=== PATIENT | female | born 1970 | race Caucasian/White ===

== ENCOUNTER 2016-07-13 09:16 | Emergency (ER) | payer OTHER ==
[~2016-07-13] VITALS: Ht 160 cm; Wt 72.6 kg
[~2016-07-13 09:16] MED LIST: ALAVERT10 M1 PO; ANAPROX DS550 MG PO; ASPIRIN81 M1 PO; BACTRIM DS 8001 TA1 PO; BIAXIN FILMTAB500 MG PO; BIAXIN500 MG PO; BUSPIRONE10 MG PO; CARAFATE1 G1 PO; CHOLESTEROL PILL; CIPROFLOXACIN500 MG PO; CLARITIN10 MG PO; CLEOCIN150 MG PO; CLINDAMYCIN HC300 MG PO; CLINDAMYCIN150 MG PO; CORTISPORIN 1%-10 M1 OT; CYCLOBENZAPRINE10 MG PO; DAYPRO600 M1 PO; ENALAPRIL10 MG PO; FIORINAL 325 MG1 CAP PO; FLEXERIL10 MG PO; GABAPENTIN100 MG PO; GABAPENTIN300 MG PO; GEMCOR600 MG PO; GLYBURIDE5 MG PO; HYDROCODONE BIT1 T11 PO; HYDROXYZINE50 MG PO; IBU800 MG PO; LANTUS100 U/ML SC; LIPITOR10 MG PO; LOVASTATIN40 MG PO; MEDROL DOSEPAK4 MG PO; MELOXICAM7.5 MG PO; METFORMIN PO; METFORMIN1000 MG PO; METFORMIN500 MG PO; METFORMIN850 MG PO; NAPROSYN500 MG PO; NAPROXEN SOD550 MG PO; NOVOLOG 70/30 M10 ML SC; OMEPRAZOLE D/R20 MG PO; PANTOPRAZOLE40 M1 PO; PARAFON FORTE500 MG PO; PERCOCET 325 MG1 TA2 PO; PREDNICOT20 MG PO; PROTONIX40 MG PO; ROBAXIN750 MG PO; SERTRALINE HCL100 MG PO; TIZANIDINE4 MG PO; TRAMADOL HCL50 MG PO; TRAZODONE100 MG PO; ULTRAM50 MG PO; VICODIN 5-3001 EACH PO; VICODIN 5/500 505 MG PO; VICODIN 500 MG-1 TAB PO; ZETIA10 MG PO; ZITHROMAX Z PA250 MG PO; ZOLOFT100 MG PO
[2016-07-13 09:20] VITALS: BP 154/80
[2016-07-13] MEDS ORDERED: LEVAQUIN500 M2 PO (09:23)
[2016-07-13 09:56] LABS: BASO # 0.1 10*3/uL (0.0-0.1); BASO % 0.5 % (0.0-1.0); EOS # 0.2 10*3/uL (0.0-0.4); EOS % 2.1 % (1.0-4.0); HEMATOCRIT 42.8 % (37.0-47.0); IG # 0.1 10*3/uL (0.0-0.1); LYMPH # 3.7 10*3/uL (1.3-4.4); LYMPH % 33.1 % (27.0-41.0); MEAN CELL VOLUME 91.3 fl (81.0-99.0); MEAN PLATELET VOLUME 10.5 fl (9.6-12.3); MONO # 0.5 10*3/uL (0.1-1.0); MONO % 4.4 % (3.0-9.0); NEUT # 6.6 10*3/uL (2.3-7.9); NEUT % 59.4 % (47.0-73.0); PLATELET COUNT AUTOMATED 197 10*3/uL (130-400); RED BLOOD COUNT 4.69 10*6/uL (4.10-5.10); RED CELL DISTRI WIDTH 12.5 % (0-14.5)
[2016-07-13 10:06] LABS: PROTHROMBIN TIME 10.4 SECONDS (9.0-12.4)
[2016-07-13 10:13] LABS: ALBUMIN 3.4 gm/dl (3.1-4.5); ALKALINE PHOSPHATASE 62 U/L (45-117); BILIRUBIN, TOTAL 0.4 mg/dl (0.2-1.0); BUN 12 mg/dl (7-24); C-REACTIVE PROTEIN 0.37 MG/DL (0-0.3); CARBON DIOXIDE 24 mmol/L (21-32); CHLORIDE 104 mmol/L (98-107); EST GLOM FILT AFRICAN AMERICAN > 60 ml/min; GLUCOSE 272 mg/dL (65-99); MAGNESIUM 1.8 mg/dL (1.5-2.1); POTASSIUM 3.7 mmol/L (3.5-5.1); SGOT/AST 23 IU/L (3-35); SGPT/ALT 53 U/L (12-78); SODIUM 136 mmol/L (136-145); TOTAL PROTEIN 7.1 gm/dL (6.4-8.2)
[2016-07-13 10:15] LABS: TROPONIN I < 0.015 ng/ml (<0.045)
== END 2016-07-13 11:27 | disposition home or self-care (01) ==
LOC: ED 09:16
PROVIDERS: Registered Nurse
DX: J20.9 Acute bronchitis, unspecified (principal); F17.200 Nicotine dependence, unspecified, uncomplicated; Z88.0 Allergy status to penicillin; Z88.8 Allergy status to other drugs, medicaments and biological substances; Z79.899 Other long term (current) drug therapy

== ENCOUNTER 2016-08-03 09:39 | Inpatient (IN) | payer OTHER ==
[~2016-08-03] VITALS: Ht 160 cm; Wt 67.8 kg
--- NOTE | ~2016-08-03 | WRIGHTHP ---
[place], [place] PATIENT HISTORY AND PHYSICAL EXAM NAME: MELONY GAMINO [facility] #: [id number] UNIT #: [id number] ROOM: 412 DOCTOR: LEN CUEVAS DO BIRTHDATE: [birth year] DOS: 08/03/2016 PRIMARY CARE PHYSICIAN: Brigitte Meyer. The patient was seen and evaluated with the resident on 08/03/2016. Please see the resident's note for further details. ASSESSMENT: 1. Chest pain, rule out myocardial infarction. 2. Diabetes mellitus type 2. 3. Hypertension. 4. Hyperlipidemia. 5. Tobacco abuse. 6. Chronic obstructive pulmonary disease. 7. Asthma. 8. Gastroesophageal reflux disease. 9. Anxiety. 10. Depression. 11. Negative cardiac stress test in December 2014. PLAN: Continue to monitor cardiac enzymes. Continue other home medications. Probable discharge tomorrow if acute coronary syndrome was ruled out. LEN CUEVAS DO CM:HISPHYS:PATIENT HISTORY AND PHYSICAL EXAMINATION 1446 1518 LEN CUEVAS DO 08/03/16 1518 interface
[~2016-08-03 09:39] MED LIST changes: +LEVAQUIN500 M2 PO
[2016-08-03 09:59] LABS: BASO # 0.1 10*3/uL (0.0-0.1); BASO % 0.5 % (0.0-1.0); EOS # 0.3 10*3/uL (0.0-0.4); EOS % 2.9 % (1.0-4.0); HEMATOCRIT 42.7 % (37.0-47.0); HEMOGLOBIN 15.1 g/dl (12.0-16.0); LYMPH # 3.4 10*3/uL (1.3-4.4); LYMPH % 35.6 % (27.0-41.0); MEAN CELL VOLUME 92.2 fl (81.0-99.0); MEAN CORPUSCULAR HGB 32.6 pg (27.0-31.0); MEAN CORPUSCULAR HGB CONC 35.4 g/dl (33.0-37.0); MEAN PLATELET VOLUME 10.5 fl (9.6-12.3); MONO # 0.5 10*3/uL (0.1-1.0); NEUT # 5.3 10*3/uL (2.3-7.9); NEUT % 55.7 % (47.0-73.0); PLATELET COUNT AUTOMATED 185 10*3/uL (130-400); RED BLOOD COUNT 4.63 10*6/uL (4.10-5.10); RED CELL DISTRI WIDTH 12.4 % (0-14.5); WHITE BLOOD COUNT 9.6 10*3/uL (4.8-10.8)
[2016-08-03 10:00] VITALS: BP 142/84
[2016-08-03 10:07] LABS: INTERNATIONAL NORM RATIO 0.9 (2.0-3.5)
[2016-08-03 10:15] LABS: ALBUMIN 3.6 gm/dl (3.1-4.5); ALKALINE PHOSPHATASE 75 U/L (45-117); BILIRUBIN, TOTAL 0.3 mg/dl (0.2-1.0); BUN 12 mg/dl (7-24); CARBON DIOXIDE 27 mmol/L (21-32); CHLORIDE 103 mmol/L (98-107); CPK 32 U/L (26-192); EST GLOM FILT AFRICAN AMERICAN > 60 ml/min; GLUCOSE 236 mg/dL (65-99); MAGNESIUM 1.9 mg/dL (1.5-2.1); POTASSIUM 3.9 mmol/L (3.5-5.1); SGOT/AST 20 IU/L (3-35); SGPT/ALT 48 U/L (12-78); SODIUM 138 mmol/L (136-145); TOTAL PROTEIN 7.4 gm/dL (6.4-8.2)
[2016-08-03 10:17] LABS: C-REACTIVE PROTEIN < 0.29 MG/DL (0-0.3); CKMB < 0.5 ng/ml (0.5-3.6); TROPONIN I < 0.015 ng/ml (<0.045)
[2016-08-03] MEDS ORDERED: DICLOFENAC SOD50 MG PO (10:50)
[2016-08-03] MEDS ORDERED: GABAPENTIN400 MG PO ×2 (10:50→11:53)
[2016-08-03] MEDS ORDERED: HYDROXYZINE PAM50 MG PO (10:51)
[2016-08-03] MEDS ORDERED: MECLIZINE HCL25 M2 PO (10:51)
[2016-08-03] MEDS ORDERED: ROBAXIN-750750 MG PO (10:52)
[2016-08-03 11:32] VITALS: BP 126/78
[2016-08-03 16:00] VITALS: BP 120/69
[2016-08-03 20:00] VITALS: BP 124/71
[2016-08-04] VITALS: BP 120/71
[2016-08-04 07:02] LABS: BASO # 0.1 10*3/uL (0.0-0.1); BASO % 0.6 % (0.0-1.0); EOS # 0.3 10*3/uL (0.0-0.4); EOS % 3.7 % (1.0-4.0); HEMOGLOBIN 14.3 g/dl (12.0-16.0); LYMPH # 3.7 10*3/uL (1.3-4.4); LYMPH % 40.7 % (27.0-41.0); MEAN CELL VOLUME 92.8 fl (81.0-99.0); MEAN CORPUSCULAR HGB 32.4 pg (27.0-31.0); MEAN CORPUSCULAR HGB CONC 34.9 g/dl (33.0-37.0); MEAN PLATELET VOLUME 10.6 fl (9.6-12.3); MONO # 0.6 10*3/uL (0.1-1.0); MONO % 6.1 % (3.0-9.0); NEUT # 4.4 10*3/uL (2.3-7.9); NEUT % 48.7 % (47.0-73.0); PLATELET COUNT AUTOMATED 182 10*3/uL (130-400); RED BLOOD COUNT 4.42 10*6/uL (4.10-5.10); RED CELL DISTRI WIDTH 12.4 % (0-14.5)
[2016-08-04 07:32] LABS: BUN 18 mg/dl (7-24); CARBON DIOXIDE 28 mmol/L (21-32); CHLORIDE 104 mmol/L (98-107); CHOLESTEROL 310 mg/dL (<200); EST GLOM FILT AFRICAN AMERICAN > 60 ml/min; GLUCOSE 156 mg/dL (65-99); HDL CHOLESTEROL 30 mg/dl (40-60); MAGNESIUM 2.1 mg/dL (1.5-2.1); SODIUM 140 mmol/L (136-145); TRIGLYCERIDES 628 mg/dl (<150)
[2016-08-04 08:00] VITALS: BP 90/52
[2016-08-04 08:16] LABS: HEMOGLOBIN A1c 9.4 % (4.8-5.6)
[2016-08-04 12:00] VITALS: BP 132/69
[2016-08-06 11:40] LABS: VITAMIN D, 25-HYDROXY 11.2 ng/mL (30-100)
[2016-08-06 11:41] LABS: FOLIC ACID 5.16 ng/mL (>5.38)
== END 2016-08-04 13:16 | disposition home or self-care (01) | DRG 392 ==
LOC: ED 09:39 → EDHOLD 10:34 → 4E 10:50
PROVIDERS: Internal Medicine; Internal Medicine Hospice and Palliative Medicine
DX: K21.9 Gastro-esophageal reflux disease without esophagitis (principal); E11.65 Type 2 diabetes mellitus with hyperglycemia; I10 Essential (primary) hypertension; J44.9 Chronic obstructive pulmonary disease, unspecified; F32.9 Major depressive disorder, single episode, unspecified; M54.5 Low back pain; E78.5 Hyperlipidemia, unspecified; F17.200 Nicotine dependence, unspecified, uncomplicated; G89.29 Other chronic pain; F41.1 Generalized anxiety disorder; Z79.4 Long term (current) use of insulin; Z79.899 Other long term (current) drug therapy; Z79.84 Long term (current) use of oral hypoglycemic drugs; Z71.6 Tobacco abuse counseling; Z88.0 Allergy status to penicillin; Z88.8 Allergy status to other drugs, medicaments and biological substances; Z91.048 Other nonmedicinal substance allergy status; Z82.49 Family history of ischemic heart disease and other diseases of the circulatory system; Z83.3 Family history of diabetes mellitus; Z82.3 Family history of stroke; Z80.8 Family history of malignant neoplasm of other organs or systems

== ENCOUNTER → 2016-09-11 | Outpatient (CLI) | payer OTHER ==
[~2016-09-11] MED LIST changes: +DICLOFENAC SOD50 MG PO; +GABAPENTIN400 MG PO; +HYDROXYZINE PAM50 MG PO; +MECLIZINE HCL25 M2 PO; +ROBAXIN-750750 MG PO
== END | disposition home or self-care (01) ==
LOC: CARD 02:42
DX: R07.2 Precordial pain (principal); Z72.0 Tobacco use

== ENCOUNTER 2017-03-04 15:09 | Inpatient (IN) | payer OTHER ==
[~2017-03-04] VITALS: Ht 160 cm; Wt 68.3 kg
--- NOTE | ~2017-03-04 | ST ---
[place], [place] EXERCISE STRESS TEST REPORT NAME: MELONY GAMINO UNIT #: [id number] ROOM: 402 DOCTOR: HARDY MERA MD BIRTHDATE: [birth year] DOS: 03/05/2017 Lexiscan portion of the Lexiscan Cardiolite, 0.4 mg Lexiscan, duration of 1 minute. With Lexiscan, no new EKG changes. No chest pain. Blood pressure and heart rate response was normal. Nuclear images will be reported separately. HARDY MERA MD CM:STRESS:EXERCISE STRESS TEST REPORT [id number] HARDY MERA MD
--- NOTE | ~2017-03-04 | CON ---
[place], [place] REPORT OF CONSULTATION NAME: MELONY GAMINO UNIT #: [id number] ROOM: 402 DOCTOR: HARDY MERA MD BIRTHDATE: [birth year] DOS: 03/05/2017 REASON FOR CONSULTATION: Chest discomfort. HISTORY OF PRESENT ILLNESS: The patient is a 46-year-old female well known to [place], admitted with left-sided precordial chest discomfort. She had a heart catheterization done by [place] and had minimal disease about 3 years ago. The patient states that the pain is about 6/10. The patient has a family history of coronary artery, tobacco abuse, diabetes mellitus, hypertension, and hyperlipidemia. No nausea, no vomiting. The patient does have shortness of breath. PAST MEDICAL HISTORY: Hypertension, hyperlipidemia, chronic back pain, generalized anxiety, and diabetes mellitus. PAST SURGICAL HISTORY: Back surgery, cholecystectomy, and appendectomy. SOCIAL HISTORY: Denies any alcohol or drug abuse. Continues to smoke 1-2 packs per day of cigarettes. FAMILY HISTORY: Positive for coronary artery disease. ALLERGIES: PENICILLIN. HOME MEDICATIONS: Insulin, glyburide, meclizine, metformin, sertraline, trazodone. REVIEW OF SYSTEMS: CONSTITUTIONAL: No fever, no chills. HEENT: No visual disturbances or hearing problems. CARDIOVASCULAR: As per HPI. RESPIRATORY: Does have shortness of breath. GASTROINTESTINAL: No nausea, no vomiting. GENITOURINARY: No dysuria. NEUROLOGICAL: Stable. PHYSICAL EXAMINATION: VITAL SIGNS: Blood pressure is 130/70. HEENT: Unremarkable. NECK: Supple, no JVD. LUNGS: Diminished breath sounds. HEART: Sounds are regular. ABDOMEN: Soft, nontender. NEUROLOGICAL: Stable. LABORATORY DATA: Electrolytes are normal. Creatinine is normal. Hemoglobin 15.7, hematocrit within normal limits. Chest x-ray is normal. EKG sinus with nonspecific ST-T changes. IMPRESSION: The patient with diabetes, hypertension, hyperlipidemia, tobacco [place], [place] REPORT OF CONSULTATION NAME: MELONY GAMINO UNIT #: [id number] ROOM: 402 DOCTOR: GABRIELLA MERA MDHISH BIRTHDATE: [birth year] abuse with chest pain. The patient has significant risk factors of coronary artery disease. RECOMMENDATIONS: Proceed with a Lexiscan Cardiolite stress test. Continue with the other medications and I will followup. HARDY MERA MD CM:CONSTR:REPORT OF CONSULTATION 0720 03/06/17 0509 interface
[2017-03-04 15:29] VITALS: BP 149/85
[2017-03-04 15:34] LABS: BASO # 0.1 10*3/uL (0.0-0.1); BASO % 0.7 % (0.0-1.0); EOS # 0.6 10*3/uL (0.0-0.4); EOS % 4.7 % (1.0-4.0); HEMATOCRIT 43.8 % (37.0-47.0); HEMOGLOBIN 15.7 g/dl (12.0-16.0); LYMPH % 34.3 % (27.0-41.0); MEAN CELL VOLUME 89.8 fl (81.0-99.0); MEAN CORPUSCULAR HGB 32.2 pg (27.0-31.0); MEAN CORPUSCULAR HGB CONC 35.8 g/dl (33.0-37.0); MEAN PLATELET VOLUME 11.3 fl (9.6-12.3); MONO # 0.7 10*3/uL (0.1-1.0); MONO % 5.8 % (3.0-9.0); NEUT # 6.3 10*3/uL (2.3-7.9); NEUT % 54.2 % (47.0-73.0); PLATELET COUNT AUTOMATED 181 10*3/uL (130-400); RED BLOOD COUNT 4.88 10*6/uL (4.10-5.10); WHITE BLOOD COUNT 11.6 10*3/uL (4.8-10.8)
[2017-03-04 15:42] LABS: ACT PARTIAL THROMBO TIME 25.5 SECONDS (20.8-31.5)
[2017-03-04 15:51] LABS: ALBUMIN 3.6 gm/dl (3.1-4.5); ALKALINE PHOSPHATASE 81 U/L (45-117); BUN 9 mg/dl (7-24); CHLORIDE 100 mmol/L (98-107); CREATININE 0.79 mg/dL (0.55-1.02); POTASSIUM 3.5 mmol/L (3.5-5.1); SGOT/AST 16 IU/L (3-35); SGPT/ALT 49 U/L (12-78); SODIUM 135 mmol/L (136-145); TOTAL PROTEIN 7.6 gm/dL (6.4-8.2)
[2017-03-04 15:53] LABS: TROPONIN I < 0.015 ng/ml (<0.045)
[2017-03-04 16:56] VITALS: BP 134/78
[2017-03-04 17:31] VITALS: BP 112/74
--- NOTE | 2017-03-04 18:15 | NUR ---
A 46, admitted to , under the services of LEN Costello DO with a diagnosis of CHEST PAIN. Chief complaint is CHEST PAIN. Patient arrived via ambulatory from ER. Monitor applied. Initial assessment completed. Vital signs taken and recorded. LEN COSTELLO DO notified of admission to the unit. Orders received. See assessment for past medical history, medications and allergies. Patient and/or family oriented to unit. [address] visitation policy reviewed. Clothing/patient valuable form completed. ANDRAE MARQUIS
[2017-03-04] MEDS ORDERED: LEXAPRO20 MG PO (18:29)
[2017-03-04] MEDS ORDERED: ROPINIROLE HYDRO2 M2 PO (18:30)
[2017-03-04] MEDS ORDERED: VENTOLIN 02.5 MG/3 M INH (18:31)
[2017-03-04] MEDS ORDERED: LORCET 5-325 M1 EACH PO (18:32)
[2017-03-04] MEDS ORDERED: LASIX20 MG PO (18:33)
[2017-03-04] MEDS ORDERED: HUMALOG KW200 UNIT/1 SQ (18:34)
[2017-03-04] MEDS ORDERED: GLUCOTROL5 MG PO (18:34)
[2017-03-04] MEDS ORDERED: ZYRTEC10 M3 PO (18:35)
[2017-03-04] MEDS ORDERED: ATORVASTATIN CA40 M1 PO (18:35)
[2017-03-04] MEDS ORDERED: JANUVIA50 MG PO (18:37)
[2017-03-04] MEDS ORDERED: METFORMIN1000 MG PO (18:44)
[2017-03-04] MEDS ORDERED: METFORMIN500 MG PO (18:45)
[2017-03-04 20:00] VITALS: BP 123/71
--- NOTE | 2017-03-04 22:20 | NUR ---
NICODERM PATCH PLACED ON PT'S RIGHT SHOULDER.
--- NOTE | 2017-03-04 23:00 | NUR ---
PT RESTING QUIETLY IN BED WITH EYES CLOSED. NO S/S OF PAIN NOTED. PRN NORCO EFFECTIVE FOR PAIN RELIEF.
[2017-03-05] VITALS: BP 143/73
--- NOTE | 2017-03-05 03:51 | NUR ---
24 HR chart check completed.
[2017-03-05 06:02] LABS: HEMATOCRIT 45.5 % (37.0-47.0); HEMOGLOBIN 15.9 g/dl (12.0-16.0); MEAN CELL VOLUME 91.7 fl (81.0-99.0); MEAN CORPUSCULAR HGB 32.1 pg (27.0-31.0); MEAN CORPUSCULAR HGB CONC 34.9 g/dl (33.0-37.0); MEAN PLATELET VOLUME 11.6 fl (9.6-12.3); PLATELET COUNT AUTOMATED 199 10*3/uL (130-400); RED BLOOD COUNT 4.96 10*6/uL (4.10-5.10); RED CELL DISTRI WIDTH 12.1 % (0-14.5); WHITE BLOOD COUNT 12.1 10*3/uL (4.8-10.8)
[2017-03-05 06:11] LABS: CHLORIDE 100 mmol/L (98-107); POTASSIUM 3.3 mmol/L (3.5-5.1); SODIUM 137 mmol/L (136-145)
[2017-03-05 06:23] LABS: BUN 12 mg/dl (7-24); CHOLESTEROL 189 mg/dL (<200); CREATININE 0.63 mg/dL (0.55-1.02); HDL CHOLESTEROL 31 mg/dl (40-60); LDL CHOLESTEROL 97 mg/dL (9-159); THYROID STIM HORMONE (HS) 0.865 uIU/ml (0.358-4.75); TRIGLYCERIDES 307 mg/dl (<150); VLDL CHOLESTEROL 61 mg/dL (6-40)
--- NOTE | 2017-03-05 06:26 | NUR ---
PT LEAVING FLOOR VIA W/C W/RELOCATION SERVICES SPECIALIST TO [employer] FOR STRESS TEST AT THIS TIME.
[2017-03-05 06:50] LABS: TOTAL CELLS COUNTED 100 #CELLS
[2017-03-05 06:51] LABS: PLATELET SUFFICIENCY NORMAL (NORMAL)
--- NOTE | 2017-03-05 07:15 | NUR ---
INFORMED CONSENT OBTAINED FOR LEXISCAN NUCLEAR STRESS TEST WITH DR. MERA. STRESS TEST INITIALLY ORDERED BUT CHANGED TO LEXISCAN ORDERED BY DR. MERA. RESTING EKG NSR WITH A RESTING HR OF 73 WITH BP OF 102/72. LUNGS DIMINISHED BS WITH SPO2 OF 97% ON ROOM AIR. PT COMPLETED A 1:00 LEXISCAN PROTOCOL RECEIVING LEXISCAN 0.4 MG IV OVER 10 SECONDS. HAD NO CHEST PAIN OR ANY EKG CHANGES. DID HAVE C/O SHORTNESS OF BREATH THAT WAS RELIEVED IN RECOVERY. HAD A PEAK BP OF 100/58 WITH HR OF 91. LAST RECOVERY HR OF 92 WITH BP OF 98/60. AWAITING SCANNING IN STABLE CONDITION.
[2017-03-05 08:00] VITALS: BP 106/59
--- NOTE | 2017-03-05 09:00 | NUR ---
Machine Stripper Cutter in to talk to patient. Patient states lives at home with . There are few steps in the home. Physician: jada schuler [facility] Home health services: none Patient's level of ADLs: INDEPENDENT Patient has working utilities: all working DME: none Follow-up physician's appointment after d/c: will be made by hospitalist nurse director upon discharage Does patient want to access PORTAL?: no Discharge plan discussed with patient, patient lives at home with her , she is independent in adls and ambulation, patient states she will be going back home and denies any home needs. JOE SMITH
--- NOTE | 2017-03-05 09:01 | NUR ---
ONE TIME DOSE OF K-DUR 40 MEQ GIVEN FOR POTASSIUM OF 3.3
[2017-03-05 12:00] VITALS: BP 104/71
--- NOTE | 2017-03-05 15:13 | NUR ---
PATIENT LEFT AMA. HEP LOCK DISCONTINUED, GEOSPATIAL SYSTEMS INTEGRATOR REMOVED. NOTIFIED SHIFT DIRECTOR AND PHYSICIAN. PATIENT WAS CONCERNED ABOUT CATS BEING AT HOME BY THEMSELVES.
== END 2017-03-05 15:13 | disposition left against medical advice (07) | DRG 206 ==
LOC: ED 15:09 → EDHOLD 16:28 → 4E 16:28
PROVIDERS: Emergency Medicine; Internal Medicine; ADMIT Emergency Medicine
PROC: 4A02XM4 Measurement of Cardiac Total Activity, External Approach (ICD-10-PCS; principal; 2017-03-05)
PROC: 3E073KZ Introduction of Other Diagnostic Substance into Coronary Artery, Percutaneous Approach (ICD-10-PCS; 2017-03-05)
DX: M94.0 Chondrocostal junction syndrome [Tietze] (principal); I11.0 Hypertensive heart disease with heart failure; E11.65 Type 2 diabetes mellitus with hyperglycemia; I50.9 Heart failure, unspecified; R09.1 Pleurisy; K21.9 Gastro-esophageal reflux disease without esophagitis; D72.829 Elevated white blood cell count, unspecified; Z53.21 Procedure and treatment not carried out due to patient leaving prior to being seen by health care provider; F32.9 Major depressive disorder, single episode, unspecified; F41.1 Generalized anxiety disorder; F17.210 Nicotine dependence, cigarettes, uncomplicated; E66.9 Obesity, unspecified; M54.9 Dorsalgia, unspecified; G89.29 Other chronic pain; E87.6 Hypokalemia; E55.9 Vitamin D deficiency, unspecified; E53.8 Deficiency of other specified B group vitamins; E78.1 Pure hyperglyceridemia; Z88.0 Allergy status to penicillin; Z88.8 Allergy status to other drugs, medicaments and biological substances; Z91.048 Other nonmedicinal substance allergy status; Z90.49 Acquired absence of other specified parts of digestive tract; Z82.3 Family history of stroke; Z79.4 Long term (current) use of insulin; Z71.6 Tobacco abuse counseling; Z80.0 Family history of malignant neoplasm of digestive organs; Z79.84 Long term (current) use of oral hypoglycemic drugs; Z79.899 Other long term (current) drug therapy; Z82.49 Family history of ischemic heart disease and other diseases of the circulatory system; Z68.31 Body mass index [BMI] 31.0-31.9, adult

== ENCOUNTER 2017-06-19 16:37 | Emergency (ER) | payer OTHER ==
[~2017-06-19] VITALS: Wt 68.9 kg
[~2017-06-19 16:37] MED LIST changes: +ATORVASTATIN CA40 M1 PO; +GLUCOTROL5 MG PO; +HUMALOG KW200 UNIT/1 SQ; +JANUVIA50 MG PO; +LASIX20 MG PO; +LEXAPRO20 MG PO; +LORCET 5-325 M1 EACH PO; +ROPINIROLE HYDRO2 M2 PO; +VENTOLIN 02.5 MG/3 M INH; +ZYRTEC10 M3 PO
[2017-06-19 16:55] VITALS: BP 145/88
== END 2017-06-19 20:08 | disposition home or self-care (01) ==
LOC: ED 16:37
DX: K06.8 Other specified disorders of gingiva and edentulous alveolar ridge (principal); F17.200 Nicotine dependence, unspecified, uncomplicated; Z98.890 Other specified postprocedural states; Z90.49 Acquired absence of other specified parts of digestive tract; Z79.899 Other long term (current) drug therapy; Z79.4 Long term (current) use of insulin; Z88.0 Allergy status to penicillin; Z88.6 Allergy status to analgesic agent

== ENCOUNTER → 2017-07-24 | Outpatient (CLI) | payer OTHER | END | disposition home or self-care (01) | LOC: US 12:50 | DX: I65.23 Occlusion and stenosis of bilateral carotid arteries (principal); R42 Dizziness and giddiness ==

== ENCOUNTER 2017-08-18 20:05 | Emergency (ER) | payer OTHER ==
[~2017-08-18] VITALS: Ht 160 cm; Wt 65.8 kg
[2017-08-18 20:08] VITALS: BP 124/75
[2017-08-18 20:37] LABS: BASO # 0.1 10*3/uL (0.0-0.1); BASO % 0.7 % (0.0-1.0); EOS # 0.2 10*3/uL (0.0-0.4); EOS % 2.8 % (1.0-4.0); HEMATOCRIT 42.4 % (37.0-47.0); HEMOGLOBIN 14.4 g/dl (12.0-16.0); LYMPH # 3.5 10*3/uL (1.3-4.4); LYMPH % 40.7 % (27.0-41.0); MEAN CORPUSCULAR HGB 29.9 pg (27.0-31.0); MONO # 0.5 10*3/uL (0.1-1.0); MONO % 5.3 % (3.0-9.0); NEUT # 4.4 10*3/uL (2.3-7.9); NEUT % 50.3 % (47.0-73.0); PLATELET COUNT AUTOMATED 162 10*3/uL (130-400); RED BLOOD COUNT 4.82 10*6/uL (4.10-5.10); RED CELL DISTRI WIDTH 13.1 % (0-14.5); WHITE BLOOD COUNT 8.7 10*3/uL (4.8-10.8)
[2017-08-18 20:42] VITALS: BP 133/78
[2017-08-18 20:47] LABS: ACT PARTIAL THROMBO TIME 24.9 SECONDS (20.8-31.5); INTERNATIONAL NORM RATIO 0.9 (2.0-3.5)
[2017-08-18 20:54] LABS: ALBUMIN 3.9 gm/dl (3.1-4.5); ALKALINE PHOSPHATASE 54 U/L (45-117); BUN 15 mg/dl (7-24); CHLORIDE 103 mmol/L (98-107); CREATININE 0.64 mg/dL (0.55-1.02); POTASSIUM 3.8 mmol/L (3.5-5.1); SGOT/AST 28 IU/L (3-35); SGPT/ALT 50 U/L (12-78); SODIUM 138 mmol/L (136-145); TOTAL PROTEIN 7.1 gm/dL (6.4-8.2)
[2017-08-18 20:56] LABS: TROPONIN I < 0.015 ng/ml (<0.045)
== END 2017-08-18 22:02 ==
LOC: ED 20:05 → EDHOLD 21:41 → ED 22:02
PROVIDERS: Student in an Organized Health Care Education/Training Program
DX: R07.9 Chest pain, unspecified (principal); R42 Dizziness and giddiness; I10 Essential (primary) hypertension; E11.9 Type 2 diabetes mellitus without complications; E78.5 Hyperlipidemia, unspecified; E66.9 Obesity, unspecified; F17.200 Nicotine dependence, unspecified, uncomplicated; Z88.0 Allergy status to penicillin; Z88.8 Allergy status to other drugs, medicaments and biological substances; Z68.39 Body mass index [BMI] 39.0-39.9, adult

== ENCOUNTER 2017-09-07 14:18 | Inpatient (IN) | payer OTHER ==
[~2017-09-07] VITALS: Ht 160 cm; Wt 63.7 kg
--- NOTE | ~2017-09-07 | WRIGHTHP ---
[place], [place] PATIENT HISTORY AND PHYSICAL EXAM NAME: MELONY GAMINO UNIT #: [id number] ROOM: 402 DOCTOR: ASIA JOSEPH DO BIRTHDATE: [birth year] DOS: 09/07/2017 SUBJECTIVE: The patient was admitted from the ED, however, she left the ED AMA and she was never seen by the medical team. ASIA JOSEPH DO CM:HISPHYS:PATIENT HISTORY AND PHYSICAL EXAMINATION 1502 1615 ASIA JOSEPH DO 10/04/17 1614 interface
[~2017-09-07 14:18] MED LIST changes: +GLUCOPHAGE500 M1 PO; +LANTUS SOL100 UNIT/1 SQ; -LANTUS100 U/ML SC
[2017-09-07 14:25] VITALS: BP 108/72
[2017-09-07 14:40] LABS: BASO # 0.1 10*3/uL (0.0-0.1); BASO % 0.6 % (0.0-1.0); EOS # 0.2 10*3/uL (0.0-0.4); HEMATOCRIT 35.4 % (37.0-47.0); HEMOGLOBIN 12.3 g/dl (12.0-16.0); LYMPH # 3.4 10*3/uL (1.3-4.4); LYMPH % 39.4 % (27.0-41.0); MEAN CELL VOLUME 86.3 fl (81.0-99.0); MEAN CORPUSCULAR HGB CONC 34.7 g/dl (33.0-37.0); MEAN PLATELET VOLUME 9.9 fl (9.6-12.3); MONO # 0.4 10*3/uL (0.1-1.0); MONO % 4.7 % (3.0-9.0); NEUT # 4.5 10*3/uL (2.3-7.9); NEUT % 53.1 % (47.0-73.0); PLATELET COUNT AUTOMATED 158 10*3/uL (130-400); RED CELL DISTRI WIDTH 12.6 % (0-14.5); WHITE BLOOD COUNT 8.5 10*3/uL (4.8-10.8)
[2017-09-07 14:48] LABS: ACT PARTIAL THROMBO TIME 24.8 SECONDS (20.8-31.5); INTERNATIONAL NORM RATIO 1.1 (2.0-3.5)
[2017-09-07 14:57] LABS: ALBUMIN 3.4 gm/dl (3.1-4.5); ALKALINE PHOSPHATASE 44 U/L (45-117); BUN 13 mg/dl (7-24); CHLORIDE 107 mmol/L (98-107); POTASSIUM 3.4 mmol/L (3.5-5.1); SGOT/AST 15 IU/L (3-35); SGPT/ALT 26 U/L (12-78); SODIUM 141 mmol/L (136-145); TOTAL PROTEIN 6.3 gm/dL (6.4-8.2)
[2017-09-07 14:59] LABS: TROPONIN I < 0.015 ng/ml (<0.045)
[2017-09-07 15:07] VITALS: BP 101/78
[2017-09-07 16:00] VITALS: BP 121/68
[2017-09-07] MEDS ORDERED: REQUIP3 M1 PO (16:19)
[2017-09-07] MEDS ORDERED: TRAZODONE HCL300 MG PO (16:19)
[2017-09-07] MEDS ORDERED: ASPIRIN CHEWABL81 MG PO (16:25)
[2017-09-07] MEDS ORDERED: TYLENOL WITH C1 EACH PO (16:25)
[2017-09-07] MEDS ORDERED: BUPROPION HCL150 M1 PO (16:26)
[2017-09-07 20:00] VITALS: BP 101/55
== END 2017-09-08 01:00 | disposition left against medical advice (07) | DRG 313 ==
LOC: ED 14:18 → EDHOLD 15:21 → 4E 15:39
PROVIDERS: Emergency Medicine
DX: R07.9 Chest pain, unspecified (principal); E11.9 Type 2 diabetes mellitus without complications; E66.9 Obesity, unspecified; E78.5 Hyperlipidemia, unspecified; F32.9 Major depressive disorder, single episode, unspecified; G89.29 Other chronic pain; M54.9 Dorsalgia, unspecified; I10 Essential (primary) hypertension; Z53.21 Procedure and treatment not carried out due to patient leaving prior to being seen by health care provider; F41.1 Generalized anxiety disorder; Z90.49 Acquired absence of other specified parts of digestive tract; Z82.49 Family history of ischemic heart disease and other diseases of the circulatory system; Z83.3 Family history of diabetes mellitus; Z79.4 Long term (current) use of insulin; Z88.0 Allergy status to penicillin; Z88.8 Allergy status to other drugs, medicaments and biological substances; Z88.9 Allergy status to unspecified drugs, medicaments and biological substances; Z79.84 Long term (current) use of oral hypoglycemic drugs; Z79.899 Other long term (current) drug therapy; Z82.3 Family history of stroke; Z80.0 Family history of malignant neoplasm of digestive organs; Z68.24 Body mass index [BMI] 24.0-24.9, adult

== ENCOUNTER 2017-10-14 18:11 | Inpatient (IN) | payer OTHER ==
[~2017-10-14] VITALS: Ht 160 cm; Wt 63.6 kg
--- NOTE | ~2017-10-14 | CON ---
[place], [place] REPORT OF CONSULTATION NAME: MELONY GAMINO UNIT #: [id number] ROOM: 506 DOCTOR: HARDY MERA MD BIRTHDATE: [birth year] DOS: 10/15/2017 HISTORY OF PRESENT ILLNESS: The patient is a 47-year-old female with a heavy tobacco abuse, admitted with chest discomfort. No acute EKG changes, suggestion of myocardial injury or infarction. The patient had a stress test a year ago, which was normal. The patient continues to smoke. Denies any nausea or vomiting. No GI or issues. She is neurologically stable. PAST MEDICAL HISTORY: Significant for hypertension, depression, hyperlipidemia, spinal stenosis, tobacco abuse, and diabetes mellitus. PAST SURGICAL HISTORY: Back history and cholecystectomy. HOME MEDICATIONS: Aspirin, atorvastatin, metformin, insulin, methocarbamol, and trazodone. ALLERGIES: PENICILLIN. SOCIAL HISTORY: She continues to smoke. She denies any alcohol abuse. FAMILY HISTORY: Positive for coronary artery disease. REVIEW OF SYSTEMS: CONSTITUTIONAL: No fever, no chills. HEENT: No visual disturbances or hearing problems. CARDIOVASCULAR SYSTEM: As per HPI. GASTROINTESTINAL: No nausea, no vomiting. GENITOURINARY: No dysuria. NEUROLOGICAL: No syncope. PHYSICAL EXAMINATION: VITAL SIGNS: Blood pressure is 113/70. She is in sinus rhythm. HEENT: Unremarkable. NECK: Supple. No JVD. LUNGS: Clear. HEART: Sounds are regular. ABDOMEN: Soft, nontender. NEUROLOGIC: Stable. DIAGNOSTIC DATA: EKG, sinus with nonspecific ST-T changes. LABORATORY DATA: Reviewed by me. Electrolytes are all normal. CPK-MB, troponins are all negative. Hemoglobin and hematocrit within normal limits. IMPRESSION: The patient with heavy tobacco abuse, hypertension, hyperlipidemia, and diabetes mellitus with chest pain. Serial enzymes have been negative. RECOMMENDATIONS: Proceed with a Lexiscan Cardiolite stress test. Continue with other medications and we will follow up. [place], [place] REPORT OF CONSULTATION NAME: MELONY GAMINO UNIT #: [id number] ROOM: 506 DOCTOR: HARDY MERA MD BIRTHDATE: [birth year] HARDY MERA MD CM:CONSTR:REPORT OF CONSULTATION 3 10/15/17717 interface
--- NOTE | ~2017-10-14 | ST ---
[place], [place] EXERCISE STRESS TEST REPORT NAME: MELONY GAMINO UNIT #: [id number] ROOM: 506 DOCTOR: HARDY MERA MD BIRTHDATE: [birth year] DOS: 10/15/2017 LEXISCAN PORTION OF THE LEXISCAN CARDIOLITE Baseline cardiogram, normal sinus rhythm with poor R-wave progression in the anterior leads, 0.4 mg of Lexiscan, duration of 10 seconds. With Lexiscan, no new EKG changes. No chest pain. Blood pressure and heart rate responses normal. Nuclear images will be reported separately. HARDY MERA MD CM:STRESS:EXERCISE STRESS TEST REPORT 1 0708 HARDY MERA MD
[~2017-10-14 18:11] MED LIST changes: +ASPIRIN CHEWABL81 MG PO; +BUPROPION HCL150 M1 PO; +REQUIP3 M1 PO; +TRAZODONE HCL300 MG PO; +TYLENOL WITH C1 EACH PO
[2017-10-14 18:32] VITALS: BP 123/73
[2017-10-14 18:34] LABS: BASO # 0.1 10*3/uL (0.0-0.1); BASO % 0.7 % (0.0-1.0); EOS # 0.4 10*3/uL (0.0-0.4); EOS % 4.7 % (1.0-4.0); HEMATOCRIT 41.4 % (37.0-47.0); HEMOGLOBIN 14.1 g/dl (12.0-16.0); LYMPH # 3.4 10*3/uL (1.3-4.4); LYMPH % 40.9 % (27.0-41.0); MEAN CELL VOLUME 87.3 fl (81.0-99.0); MEAN CORPUSCULAR HGB 29.7 pg (27.0-31.0); MEAN CORPUSCULAR HGB CONC 34.1 g/dl (33.0-37.0); MEAN PLATELET VOLUME 9.7 fl (9.6-12.3); MONO # 0.4 10*3/uL (0.1-1.0); MONO % 4.7 % (3.0-9.0); NEUT % 48.8 % (47.0-73.0); PLATELET COUNT AUTOMATED 185 10*3/uL (130-400); RED BLOOD COUNT 4.74 10*6/uL (4.10-5.10); RED CELL DISTRI WIDTH 12.8 % (0-14.5); WHITE BLOOD COUNT 8.2 10*3/uL (4.8-10.8)
[2017-10-14 18:47] LABS: ACT PARTIAL THROMBO TIME 25.7 SECONDS (20.8-31.5); INTERNATIONAL NORM RATIO 0.9 (2.0-3.5)
[2017-10-14 18:50] LABS: ALBUMIN 3.7 gm/dl (3.1-4.5); ALKALINE PHOSPHATASE 59 U/L (45-117); BUN 14 mg/dl (7-24); CHLORIDE 105 mmol/L (98-107); CREATININE 0.72 mg/dL (0.55-1.02); POTASSIUM 3.5 mmol/L (3.5-5.1); SGOT/AST 11 IU/L (3-35); SGPT/ALT 22 U/L (12-78); SODIUM 142 mmol/L (136-145); TOTAL PROTEIN 7.4 gm/dL (6.4-8.2)
[2017-10-14 18:52] LABS: TROPONIN I < 0.015 ng/ml (<0.045)
[2017-10-14 19:28] VITALS: BP 115/76
[2017-10-14 20:27] VITALS: BP 113/7; BP 113/70
[2017-10-15] VITALS: BP 123/61
== END 2017-10-15 12:05 | disposition home or self-care (01) | DRG 206 ==
LOC: ED 18:11 → EDHOLD 19:22 → 5E 19:22
PROVIDERS: Emergency Medicine
PROC: 4A02XM4 Measurement of Cardiac Total Activity, External Approach (ICD-10-PCS; principal; 2017-10-15)
PROC: 3E073KZ Introduction of Other Diagnostic Substance into Coronary Artery, Percutaneous Approach (ICD-10-PCS; 2017-10-15)
DX: M94.0 Chondrocostal junction syndrome [Tietze] (principal); E44.0 Moderate protein-calorie malnutrition; E11.65 Type 2 diabetes mellitus with hyperglycemia; M48.061 Spinal stenosis, lumbar region without neurogenic claudication; F32.9 Major depressive disorder, single episode, unspecified; F41.1 Generalized anxiety disorder; Z71.6 Tobacco abuse counseling; E55.9 Vitamin D deficiency, unspecified; E53.8 Deficiency of other specified B group vitamins; E78.1 Pure hyperglyceridemia; I10 Essential (primary) hypertension; E78.5 Hyperlipidemia, unspecified; F17.210 Nicotine dependence, cigarettes, uncomplicated; E66.9 Obesity, unspecified; Z90.49 Acquired absence of other specified parts of digestive tract; Z98.891 History of uterine scar from previous surgery; Z79.82 Long term (current) use of aspirin; Z79.4 Long term (current) use of insulin; Z68.24 Body mass index [BMI] 24.0-24.9, adult; Z79.84 Long term (current) use of oral hypoglycemic drugs; Z79.899 Other long term (current) drug therapy; Z88.0 Allergy status to penicillin; Z88.8 Allergy status to other drugs, medicaments and biological substances; Z91.048 Other nonmedicinal substance allergy status; Z82.3 Family history of stroke; Z82.49 Family history of ischemic heart disease and other diseases of the circulatory system; Z83.3 Family history of diabetes mellitus; Z80.8 Family history of malignant neoplasm of other organs or systems

== ENCOUNTER 2017-10-19 19:55 | Emergency (ER) | payer OTHER ==
[~2017-10-19] VITALS: Ht 160 cm; Wt 63.5 kg
--- NOTE | ~2017-10-19 | EKG ---
[place], [place] ELECTROCARDIOGRAM REPORT NAME: MELONY GAMINO UNIT #: [id number] ROOM: DOCTOR: EPIPHANY DRAFT REPORT BIRTHDATE: [birth year] [facility] Test Date: 2017-10-19 Test Time: 20:20:02 Pat Name: MELONY GAMINO Department: ER Room: 2 Gender: F Supervisor Delivery Department: 52 : 1970 Requested By: SAIMA ZAVALA Order Number: [id number] Reading MD: Richie Aguirre MD Measurements Intervals [place] Rate: 93 P: 40 DC: 165 QRS: 39 QRSD: 88 T: 83 QT: 369 QTc: 459 Interpretive Statements Sinus rhythm Probable left atrial enlargement poor R wave progression anterior leads Electronically Signed On 10-29-2017 4:39:12 PDT by Richie Aguirre MD CM:EKGRPT:ELECTROCARDIOGRAM REPORT 19 0439 SAIMA HECK DRAFT REPORT SAIMA ZAVALA DO
[2017-10-19 20:40] LABS: BASO # 0.1 10*3/uL (0.0-0.1); BASO % 0.7 % (0.0-1.0); EOS # 0.3 10*3/uL (0.0-0.4); EOS % 3.7 % (1.0-4.0); HEMATOCRIT 40.7 % (37.0-47.0); HEMOGLOBIN 13.6 g/dl (12.0-16.0); LYMPH # 3.3 10*3/uL (1.3-4.4); LYMPH % 45.3 % (27.0-41.0); MEAN CELL VOLUME 87.2 fl (81.0-99.0); MEAN CORPUSCULAR HGB 29.1 pg (27.0-31.0); MEAN CORPUSCULAR HGB CONC 33.4 g/dl (33.0-37.0); MEAN PLATELET VOLUME 9.5 fl (9.6-12.3); MONO # 0.4 10*3/uL (0.1-1.0); MONO % 5.6 % (3.0-9.0); NEUT # 3.2 10*3/uL (2.3-7.9); NEUT % 44.4 % (47.0-73.0); PLATELET COUNT AUTOMATED 175 10*3/uL (130-400); RED BLOOD COUNT 4.67 10*6/uL (4.10-5.10); RED CELL DISTRI WIDTH 12.9 % (0-14.5); WHITE BLOOD COUNT 7.3 10*3/uL (4.8-10.8)
[2017-10-19 20:56] LABS: ALBUMIN 3.8 gm/dl (3.1-4.5); ALKALINE PHOSPHATASE 58 U/L (45-117); BUN 15 mg/dl (7-24); CHLORIDE 102 mmol/L (98-107); CREATININE 0.78 mg/dL (0.55-1.02); LIPASE 49 U/L (73-393); POTASSIUM 3.9 mmol/L (3.5-5.1); SGOT/AST 11 IU/L (3-35); SGPT/ALT 20 U/L (12-78); SODIUM 138 mmol/L (136-145); TOTAL PROTEIN 7.3 gm/dL (6.4-8.2)
[2017-10-19 21:52] LABS: BILIRUBIN NEGATIVE (NEGATIVE); BLOOD TRACE-LYSED (NEGATIVE); CLARITY CLEAR (CLEAR); COLOR YELLOW (YELLOW); GLUCOSE NEGATIVE (NEGATIVE); KETONE NEGATIVE (NEGATIVE); LEUKO ESTERASE 2+ (NEGATIVE); NITRITE NEGATIVE (NEGATIVE); PH 6.5 (5.0-9.0); UROBILINOGEN 0.2 E.U./dl (0.2-1.0)
[2017-10-19 21:55] VITALS: BP 142/81
[2017-10-19 21:58] LABS: BACTERIA 2+; RBC 0-2 rbc/hpf (0-2); WBC 16-20 wbc/hpf (0-5)
[2017-10-19 22:01] LABS: URINE AMPHETAMINES < 1000 (1000ng/ml); URINE BARBITURATES < 200 (200ng/ml); URINE BENZODIAZEPINES < 200 (200ng/ml); URINE CANNABINOIDS (THC) < 50 (50ng/ml); URINE COCAINE < 300 (300ng/ml); URINE METHADONE < 300 (300ng/ml); URINE OPIATES > 300 (300ng/ml)
[2017-10-19 22:02] LABS: URINE PHENCYCLIDINE < 25 (25ng/ml)
== END 2017-10-19 22:25 | disposition home or self-care (01) ==
LOC: ED 19:55
PROVIDERS: Emergency Medicine
DX: S09.90XA Unspecified injury of head, initial encounter (principal); G89.29 Other chronic pain; I10 Essential (primary) hypertension; E11.9 Type 2 diabetes mellitus without complications; F17.200 Nicotine dependence, unspecified, uncomplicated; E78.1 Pure hyperglyceridemia; Z88.0 Allergy status to penicillin; Z88.8 Allergy status to other drugs, medicaments and biological substances; Z79.899 Other long term (current) drug therapy; Z79.82 Long term (current) use of aspirin; Z79.4 Long term (current) use of insulin; Z90.49 Acquired absence of other specified parts of digestive tract; V89.2XXA Person injured in unspecified motor-vehicle accident, traffic, initial encounter; Y93.89 Activity, other specified; Y92.410 Unspecified street and highway as the place of occurrence of the external cause; Y99.8 Other external cause status

== ENCOUNTER 2018-02-15 10:43 | Emergency (ER) | payer OTHER ==
[~2018-02-15] VITALS: Ht 160 cm; Wt 61.2 kg
[2018-02-15 13:04] VITALS: BP 107/80
[2018-02-15] MEDS ORDERED: PROVENTIL HFA6.7 GM INH (13:13)
[2018-02-15] MEDS ORDERED: PREDNISONE20 M1 PO (13:13)
[2018-02-15] MEDS ORDERED: VIBRAMYCIN100 MG PO (13:13)
== END 2018-02-15 13:33 | disposition home or self-care (01) ==
LOC: ED 10:43
DX: J44.1 Chronic obstructive pulmonary disease with (acute) exacerbation (principal); F17.210 Nicotine dependence, cigarettes, uncomplicated; E78.5 Hyperlipidemia, unspecified; I10 Essential (primary) hypertension; E11.9 Type 2 diabetes mellitus without complications; Z88.0 Allergy status to penicillin; Z88.8 Allergy status to other drugs, medicaments and biological substances; Z79.899 Other long term (current) drug therapy; Z79.82 Long term (current) use of aspirin; Z79.4 Long term (current) use of insulin

== ENCOUNTER 2018-04-26 13:31 | Emergency (ER) | payer OTHER ==
[~2018-04-26 13:31] MED LIST changes: +PREDNISONE20 M1 PO; +PROVENTIL HFA6.7 GM INH; +VIBRAMYCIN100 MG PO
[2018-04-26] MEDS ORDERED: OMNICEF300 MG PO (13:53)
[2018-04-26] MEDS ORDERED: PROAIR HFA8.5 GM INH (13:53)
[2018-04-26] MEDS ORDERED: PREDNISONE10 MG PO (13:53)
[2018-04-26] MEDS ORDERED: OFLOXACIN OTIC5 ML OT (14:01)
[2018-04-26 15:10] VITALS: BP 148/72
[2018-08-13] MEDS ORDERED: REQUIP3 M1 PO (22:28)
== END 2018-04-26 15:32 | disposition home or self-care (01) ==
LOC: ED 13:31
DX: J20.9 Acute bronchitis, unspecified (principal); H60.62 Unspecified chronic otitis externa, left ear; I10 Essential (primary) hypertension; J44.9 Chronic obstructive pulmonary disease, unspecified; E78.5 Hyperlipidemia, unspecified; E11.9 Type 2 diabetes mellitus without complications; F17.200 Nicotine dependence, unspecified, uncomplicated; Z88.0 Allergy status to penicillin; Z88.8 Allergy status to other drugs, medicaments and biological substances; Z79.899 Other long term (current) drug therapy; Z79.82 Long term (current) use of aspirin; Z79.4 Long term (current) use of insulin

== ENCOUNTER 2018-05-02 20:58 | Inpatient (IN) | payer OTHER ==
--- NOTE | ~2018-05-02 | EKG ---
[place], [place] ELECTROCARDIOGRAM REPORT NAME: MELONY GAMINO UNIT #: [id number] ROOM: 421 DOCTOR: SADIQ DRAFT REPORT BIRTHDATE: [birth year] 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
--- NOTE | ~2018-05-02 | EKG ---
[place], [place] ELECTROCARDIOGRAM REPORT NAME: MELONY GAMINO UNIT #: [id number] ROOM: DOCTOR: EPIPHANY DRAFT REPORT BIRTHDATE: [birth year] [facility] Test Date: 2018-05-02 Test Time: 21:00:25 Pat Name: MELONY GAMINO Department: Room: Gender: F Supervisor Rework: : 1970 Requested By: SHIVAM CLEMONS Order Number: [id number] Reading MD: Measurements Intervals [place] Rate: 91 P: 35 [place]: 143 QRS: 40 QRSD: 93 T: 72 QT: 378 QTc: 466 Interpretive Statements Sinus rhythm Compared to ECG 10/19/2017 20:20:02 Poor R-wave progression no longer present CM:EKGRPT:ELECTROCARDIOGRAM REPORT 99 180 SHIVAM BABCOCK DRAFT REPORT SHIVAM CLEMONS MD
--- NOTE | ~2018-05-02 | EKG ---
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
[2018-05-02 21:03] VITALS: BP 126/66
[2018-05-02 21:21] LABS: BASO % 0.1 % (0.0-1.0); EOS # 0.1 10*3/uL (0.0-0.4); EOS % 0.8 % (1.0-4.0); HEMATOCRIT 39.1 % (37.0-47.0); HEMOGLOBIN 13.5 g/dl (12.0-16.0); LYMPH # 4.4 10*3/uL (1.3-4.4); LYMPH % 32.2 % (27.0-41.0); MEAN CELL VOLUME 87.9 fl (81.0-99.0); MEAN CORPUSCULAR HGB 30.3 pg (27.0-31.0); MEAN CORPUSCULAR HGB CONC 34.5 g/dl (33.0-37.0); MEAN PLATELET VOLUME 9.2 fl (9.6-12.3); MONO # 0.8 10*3/uL (0.1-1.0); MONO % 6.1 % (3.0-9.0); NEUT # 8.3 10*3/uL (2.3-7.9); NEUT % 60.2 % (47.0-73.0); PLATELET COUNT AUTOMATED 245 10*3/uL (130-400); RED BLOOD COUNT 4.45 10*6/uL (4.10-5.10); RED CELL DISTRI WIDTH 12.4 % (0-14.5); WHITE BLOOD COUNT 13.8 10*3/uL (4.8-10.8)
[2018-05-02 21:31] LABS: ACT PARTIAL THROMBO TIME 22.6 SECONDS (20.8-31.5); INTERNATIONAL NORM RATIO 0.9 (2.0-3.5)
[2018-05-02 21:39] LABS: BUN 19 mg/dl (7-24); CHLORIDE 100 mmol/L (98-107); POTASSIUM 3.8 mmol/L (3.5-5.1); SGOT/AST 10 IU/L (3-35); SGPT/ALT 19 U/L (12-78); SODIUM 137 mmol/L (136-145); TOTAL PROTEIN 6.6 gm/dL (6.4-8.2)
[2018-05-02 21:41] LABS: ALKALINE PHOSPHATASE 55 U/L (45-117); TROPONIN I < 0.015 ng/ml (<0.045)
[2018-05-02 22:41] VITALS: BP 115/72
[2018-05-03 00:30] VITALS: BP 120/78
--- NOTE | 2018-05-03 00:30 | NUR ---
A 47, admitted to , under the services of LEN Costello DO with a diagnosis of CHEST PAIN. Chief complaint is CHEST PAIN. Patient arrived via bed from ER. Monitor applied. Initial assessment completed. Vital signs taken and recorded. LEN COSTELLO DO notified of admission to the unit. Orders received. See assessment for past medical history, medications and allergies. Patient and/or family oriented to unit. [facility] visitation policy reviewed. Clothing/patient valuable form completed. MAIKEL FISHER
--- NOTE | 2018-05-03 01:00 | NUR ---
NOTIFIED DR GUILLAUME OF PATIENTS EXCORIATED AREAS AND RASH UNDER BILATERAL BREASTS. ALSO NOTIFIED OF PATIENTS BSG 282 AND PATIENT NOT TAKING NIGHT DOSE OF LANTUS AT HOME. ORDERS TO GIVE A DOSE OF INSULIN PER THE SLIDING SCALE NOW AND RECHECK AT NORMAL TIME IN THE MORNING.
[2018-05-03 03:14] LABS: HEMATOCRIT 38.5 % (37.0-47.0); HEMOGLOBIN 13.5 g/dl (12.0-16.0); MEAN CELL VOLUME 88.1 fl (81.0-99.0); MEAN CORPUSCULAR HGB 30.9 pg (27.0-31.0); MEAN CORPUSCULAR HGB CONC 35.1 g/dl (33.0-37.0); MEAN PLATELET VOLUME 9.1 fl (9.6-12.3); PLATELET COUNT AUTOMATED 250 10*3/uL (130-400); RED BLOOD COUNT 4.37 10*6/uL (4.10-5.10); RED CELL DISTRI WIDTH 12.6 % (0-14.5); WHITE BLOOD COUNT 15.6 10*3/uL (4.8-10.8)
--- NOTE | 2018-05-03 03:42 | NUR ---
MED REC UP TO DATE VIA LIST FROM PATIENT.
[2018-05-03 03:43] LABS: ATYPICAL LYMPHS 1 % (0-0); PLATELET SUFFICIENCY NORMAL (NORMAL); TOTAL CELLS COUNTED 100 #CELLS
[2018-05-03 04:06] LABS: ALBUMIN 3.2 gm/dl (3.1-4.5); ALKALINE PHOSPHATASE 62 U/L (45-117); BUN 20 mg/dl (7-24); CHLORIDE 105 mmol/L (98-107); CHOLESTEROL 264 mg/dL (<200); CREATININE 0.81 mg/dL (0.55-1.02); PHOSPHOROUS 3.9 mg/dL (2.5-4.9); POTASSIUM 3.7 mmol/L (3.5-5.1); SGOT/AST 10 IU/L (3-35); SGPT/ALT 16 U/L (12-78); SODIUM 141 mmol/L (136-145); TOTAL PROTEIN 6.7 gm/dL (6.4-8.2); TRIGLYCERIDES 464 mg/dl (<150)
[2018-05-03 04:12] LABS: FREE T4 1.04 ng/dl (0.76-1.46); HDL CHOLESTEROL 35 mg/dl (40-60); THYROID STIM HORMONE (HS) 0.707 uIU/ml (0.358-4.75)
[2018-05-03 08:00] VITALS: BP 90/60
--- NOTE | 2018-05-03 08:10 | NUR ---
TYLENOL GIVEN FOR C/O HEADACHE. WILL MONITOR.
[2018-05-03 08:35] LABS: BILIRUBIN NEGATIVE (NEGATIVE); BLOOD NEGATIVE (NEGATIVE); CLARITY CLEAR (CLEAR); COLOR YELLOW (YELLOW); GLUCOSE NEGATIVE (NEGATIVE); KETONE NEGATIVE (NEGATIVE); LEUKO ESTERASE NEGATIVE (NEGATIVE); NITRITE NEGATIVE (NEGATIVE); SPECIFIC GRAVITY 1.015 (1.005-1.030); UROBILINOGEN 0.2 E.U./dl (0.2-1.0)
--- NOTE | 2018-05-03 09:15 | NUR ---
TYLENOL EFFECTIVE PER PT.
[2018-05-03 09:46] LABS: BACTERIA TRACE; CALCIUM OXALATE CRYSTALS TRACE; YEAST TRACE
--- NOTE | 2018-05-03 12:32 | NUR ---
[facility] Discharge instructions reviewed with patient/family. Patient receptive and verbalizes understanding. Follow-up care arranged. Written instructions given to patient/family. DENEEN KEENE
[2018-08-13] MEDS ORDERED: REQUIP3 M1 PO (22:28)
== END 2018-05-03 12:32 | disposition home or self-care (01) | DRG 392 ==
LOC: ED 20:58 → 4E 23:15 → EDHOLD 23:15 → 4E 23:24
PROVIDERS: Emergency Medicine Emergency Medical Services; Family Medicine; Nurse Practitioner Family; ADMIT Emergency Medicine
DX: K21.9 Gastro-esophageal reflux disease without esophagitis (principal); E44.0 Moderate protein-calorie malnutrition; G89.29 Other chronic pain; D72.823 Leukemoid reaction; D72.818 Other decreased white blood cell count; E11.65 Type 2 diabetes mellitus with hyperglycemia; I10 Essential (primary) hypertension; E78.5 Hyperlipidemia, unspecified; E55.9 Vitamin D deficiency, unspecified; E53.8 Deficiency of other specified B group vitamins; E78.1 Pure hyperglyceridemia; F41.1 Generalized anxiety disorder; G47.00 Insomnia, unspecified; J44.9 Chronic obstructive pulmonary disease, unspecified; F17.210 Nicotine dependence, cigarettes, uncomplicated; F32.9 Major depressive disorder, single episode, unspecified; M48.00 Spinal stenosis, site unspecified; M54.5 Low back pain; Z79.4 Long term (current) use of insulin; Z71.6 Tobacco abuse counseling; Z88.0 Allergy status to penicillin; Z88.8 Allergy status to other drugs, medicaments and biological substances; Z91.048 Other nonmedicinal substance allergy status; Z90.49 Acquired absence of other specified parts of digestive tract; Z82.3 Family history of stroke; Z80.0 Family history of malignant neoplasm of digestive organs; Z83.3 Family history of diabetes mellitus; Z82.49 Family history of ischemic heart disease and other diseases of the circulatory system; Z79.82 Long term (current) use of aspirin; Z79.899 Other long term (current) drug therapy; Z79.52 Long term (current) use of systemic steroids; Z68.27 Body mass index [BMI] 27.0-27.9, adult

== ENCOUNTER → 2018-05-02 | Outpatient (CLI) | payer OTHER ==
[~2018-05-02] MED LIST changes: +OFLOXACIN OTIC5 ML OT; +OMNICEF300 MG PO; +PREDNISONE10 MG PO; +PROAIR HFA8.5 GM INH
== END | disposition home or self-care (01) ==
LOC: RAD 10:48
DX: M51.36 Other intervertebral disc degeneration, lumbar region (principal)

== ENCOUNTER 2018-07-30 18:54 | Emergency (ER) | payer OTHER ==
[~2018-07-30] VITALS: Ht 160 cm; Wt 68.0 kg
[2018-07-30 18:55] VITALS: BP 143/84
[2018-07-30] MEDS ORDERED: TESSALON PERLE100 MG PO (19:59)
[2018-07-30] MEDS ORDERED: CEPACOL SORE T1 EACH MM (19:59)
[2018-08-13] MEDS ORDERED: REQUIP3 M1 PO (22:28)
== END 2018-07-30 20:15 ==
LOC: ED 18:54
DX: J45.909 Unspecified asthma, uncomplicated (principal); G89.29 Other chronic pain; I10 Essential (primary) hypertension; E78.1 Pure hyperglyceridemia; E11.9 Type 2 diabetes mellitus without complications; F17.200 Nicotine dependence, unspecified, uncomplicated; Z88.0 Allergy status to penicillin; Z91.048 Other nonmedicinal substance allergy status; Z88.8 Allergy status to other drugs, medicaments and biological substances; Z79.899 Other long term (current) drug therapy; Z79.82 Long term (current) use of aspirin; Z79.4 Long term (current) use of insulin; Z90.49 Acquired absence of other specified parts of digestive tract

== ENCOUNTER 2018-11-16 11:01 | Emergency (ER) | payer OTHER ==
[~2018-11-16] VITALS: Ht 160 cm; Wt 79.4 kg
[~2018-11-16 11:01] MED LIST changes: +CEPACOL SORE T1 EACH MM; +TESSALON PERLE100 MG PO
[2018-11-16 11:06] VITALS: BP 141/78
[2018-11-16] MEDS ORDERED: DOXYCYCLINE100 M3 PO (12:25)
[2018-11-16] MEDS ORDERED: IBUPROFEN600 MG PO (12:26)
== END 2018-11-16 12:33 | disposition home or self-care (01) ==
LOC: ED 11:01
DX: L02.811 Cutaneous abscess of head [any part, except face] (principal); F17.210 Nicotine dependence, cigarettes, uncomplicated; Z88.0 Allergy status to penicillin; Z91.048 Other nonmedicinal substance allergy status; Z88.8 Allergy status to other drugs, medicaments and biological substances; Z79.899 Other long term (current) drug therapy; Z79.4 Long term (current) use of insulin; Z90.49 Acquired absence of other specified parts of digestive tract

== ENCOUNTER → 2018-12-02 | Outpatient (CLI) | payer OTHER ==
[~2018-12-02] MED LIST changes: +DOXYCYCLINE100 M3 PO; +IBUPROFEN600 MG PO; +OCUFLOX 0.3% 5 M5 ML OPH
--- NOTE | ~2018-12-02 | ST ---
[place], [place] EXERCISE STRESS TEST [facility]PORT [id number] #: [id number] ROOM: DOCTOR: HARDY MERA MD BIRTHDATE: [birth year] DOS: 12/02/2018 LEXISCAN PORTION OF THE LEXISCAN CARDIOLITE Baseline cardiogram, sinus with poor R-wave progression in the anterior leads, 0.4 mg Lexiscan, duration of 10 seconds. With Lexiscan, no new EKG changes. No chest discomfort. Blood pressure and heart rate response was normal. Nuclear images will be reported separately. HARDY MERA MD CM:STRESS:EXERCISE STRESS TEST REPORT 0710 0716 HARDY MERA MD
--- NOTE | 2018-12-02 07:13 | NUR ---
INFORMED CONSENT SIGNED FOR LEXISCAN STRESS TEST WITH DR. MERA. RESTING EKG NSR, HR 74, BP 102/60. PULSE OX 96% AND LUNGS CLEAR. COMPLETED ONE MINUTE OF LEXISCAN PROTOCOL RECEVING LEXISCAN 0.4MG OVER 10 SECONDS. NO ARRHTHYMIAS OR ST CHANGES NOTED. PT HAD NO C/O. LAST RECOVERY HR 76, BP 94/58. WAITING NUCLEAR SCANNING IN STABLE CONDITION.
== END | disposition home or self-care (01) ==
LOC: CARD 01:26
DX: R07.9 Chest pain, unspecified (principal)

== ENCOUNTER 2019-01-24 10:57 | Emergency (ER) | payer OTHER ==
[~2019-01-24] VITALS: Ht 160 cm; Wt 61.2 kg
[2019-01-24 10:57] VITALS: BP 135/88
[2019-01-24 12:38] LABS: BASO # 0.1 10*3/uL (0.0-0.1); BASO % 0.6 % (0.0-1.0); EOS # 0.2 10*3/uL (0.0-0.4); EOS % 2.1 % (1.0-4.0); HEMATOCRIT 46.6 % (37.0-47.0); HEMOGLOBIN 15.9 g/dl (12.0-16.0); LYMPH # 3.9 10*3/uL (1.3-4.4); LYMPH % 40.1 % (27.0-41.0); MEAN CELL VOLUME 87.8 fl (81.0-99.0); MEAN CORPUSCULAR HGB 29.9 pg (27.0-31.0); MEAN CORPUSCULAR HGB CONC 34.1 g/dl (33.0-37.0); MEAN PLATELET VOLUME 9.9 fl (9.6-12.3); MONO # 0.5 10*3/uL (0.1-1.0); MONO % 4.7 % (3.0-9.0); NEUT # 5.1 10*3/uL (2.3-7.9); NEUT % 52.1 % (47.0-73.0); PLATELET COUNT AUTOMATED 207 10*3/uL (130-400); RED BLOOD COUNT 5.31 10*6/uL (4.10-5.10); RED CELL DISTRI WIDTH 11.9 % (0-14.5); WHITE BLOOD COUNT 9.7 10*3/uL (4.8-10.8)
[2019-01-24 12:53] LABS: ALBUMIN 3.5 gm/dl (3.1-4.5); ALKALINE PHOSPHATASE 85 U/L (45-117); BUN 14 mg/dl (7-24); CHLORIDE 101 mmol/L (98-107); CREATININE 0.73 mg/dL (0.55-1.02); POTASSIUM 3.9 mmol/L (3.5-5.1); SGOT/AST 14 IU/L (3-35); SGPT/ALT 28 U/L (12-78); SODIUM 134 mmol/L (136-145); TOTAL PROTEIN 7.3 gm/dL (6.4-8.2)
[2019-01-24] MEDS ORDERED: VIBRAMYCIN100 MG PO (13:07)
[2019-01-24] MEDS ORDERED: PROAIR HFA8.5 GM INH (13:07)
[2019-01-24] MEDS ORDERED: PREDNISONE50 MG PO (13:07)
== END 2019-01-24 13:13 | disposition home or self-care (01) ==
LOC: ED 10:57
PROVIDERS: Nurse Practitioner Family
DX: J18.9 Pneumonia, unspecified organism (principal); F17.210 Nicotine dependence, cigarettes, uncomplicated; Z90.49 Acquired absence of other specified parts of digestive tract; Z98.890 Other specified postprocedural states; Z79.899 Other long term (current) drug therapy; Z79.4 Long term (current) use of insulin; Z79.82 Long term (current) use of aspirin; Z88.0 Allergy status to penicillin; Z88.6 Allergy status to analgesic agent

== ENCOUNTER 2019-02-08 20:08 | Emergency (ER) | payer OTHER ==
[~2019-02-08] VITALS: Ht 160 cm; Wt 63.5 kg
--- NOTE | ~2019-02-08 | EKG ---
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
[~2019-02-08 20:08] MED LIST changes: +PREDNISONE50 MG PO
[2019-02-08 20:09] VITALS: BP 142/85
[2019-02-08 21:20] LABS: BASO # 0.1 10*3/uL (0.0-0.1); BASO % 0.5 % (0.0-1.0); EOS # 0.2 10*3/uL (0.0-0.4); EOS % 1.2 % (1.0-4.0); HEMATOCRIT 44.6 % (37.0-47.0); HEMOGLOBIN 15.2 g/dl (12.0-16.0); LYMPH # 3.1 10*3/uL (1.3-4.4); LYMPH % 24.7 % (27.0-41.0); MEAN CELL VOLUME 86.6 fl (81.0-99.0); MEAN CORPUSCULAR HGB 29.5 pg (27.0-31.0); MEAN CORPUSCULAR HGB CONC 34.1 g/dl (33.0-37.0); MEAN PLATELET VOLUME 10.3 fl (9.6-12.3); MONO # 0.5 10*3/uL (0.1-1.0); MONO % 4.2 % (3.0-9.0); NEUT # 8.7 10*3/uL (2.3-7.9); NEUT % 69.1 % (47.0-73.0); PLATELET COUNT AUTOMATED 194 10*3/uL (130-400); RED BLOOD COUNT 5.15 10*6/uL (4.10-5.10); RED CELL DISTRI WIDTH 11.8 % (0-14.5); WHITE BLOOD COUNT 12.6 10*3/uL (4.8-10.8)
[2019-02-08 21:30] LABS: ACT PARTIAL THROMBO TIME 25.4 SECONDS (20.0-32.1)
[2019-02-08 21:33] LABS: ALBUMIN 3.6 gm/dl (3.1-4.5); ALKALINE PHOSPHATASE 63 U/L (45-117); BUN 16 mg/dl (7-24); CHLORIDE 103 mmol/L (98-107); CREATININE 0.75 mg/dL (0.55-1.02); LIPASE 55 U/L (73-393); POTASSIUM 3.6 mmol/L (3.5-5.1); SGOT/AST 15 IU/L (3-35); SGPT/ALT 26 U/L (12-78); SODIUM 136 mmol/L (136-145); TOTAL PROTEIN 7.1 gm/dL (6.4-8.2); TROPONIN I < 0.015 ng/ml (<0.045)
[2019-02-08] MEDS ORDERED: ZITHROMAX250 MG PO (22:36)
== END 2019-02-08 22:41 | disposition home or self-care (01) ==
LOC: ED 20:08
PROVIDERS: Nurse Practitioner Family
DX: J45.909 Unspecified asthma, uncomplicated (principal); E78.00 Pure hypercholesterolemia, unspecified; I10 Essential (primary) hypertension; E78.5 Hyperlipidemia, unspecified; E11.9 Type 2 diabetes mellitus without complications; F17.210 Nicotine dependence, cigarettes, uncomplicated; Z88.0 Allergy status to penicillin; Z88.8 Allergy status to other drugs, medicaments and biological substances; Z79.899 Other long term (current) drug therapy; Z79.82 Long term (current) use of aspirin; Z79.4 Long term (current) use of insulin

== ENCOUNTER 2019-02-13 16:57 | Emergency (ER) | payer OTHER ==
[~2019-02-13] VITALS: Ht 160 cm; Wt 64.9 kg
[~2019-02-13 16:57] MED LIST changes: -ZOFRAN4 MG PO
[2019-02-13 17:51] LABS: ALBUMIN 3.8 gm/dl (3.1-4.5); ALKALINE PHOSPHATASE 61 U/L (45-117); BUN 19 mg/dl (7-24); CHLORIDE 106 mmol/L (98-107); CREATININE 0.88 mg/dL (0.55-1.02); LIPASE 54 U/L (73-393); POTASSIUM 3.9 mmol/L (3.5-5.1); SGOT/AST 23 IU/L (3-35); SGPT/ALT 26 U/L (12-78); SODIUM 138 mmol/L (136-145); TOTAL PROTEIN 7.6 gm/dL (6.4-8.2)
[2019-02-13 17:53] LABS: BASO # 0.1 10*3/uL (0.0-0.1); BASO % 0.8 % (0.0-1.0); EOS # 0.1 10*3/uL (0.0-0.4); EOS % 1.8 % (1.0-4.0); HEMATOCRIT 42.8 % (37.0-47.0); HEMOGLOBIN 14.7 g/dl (12.0-16.0); LYMPH # 2.4 10*3/uL (1.3-4.4); LYMPH % 30.1 % (27.0-41.0); MEAN CELL VOLUME 85.6 fl (81.0-99.0); MEAN CORPUSCULAR HGB 29.4 pg (27.0-31.0); MEAN CORPUSCULAR HGB CONC 34.3 g/dl (33.0-37.0); MEAN PLATELET VOLUME 10.2 fl (9.6-12.3); MONO # 0.4 10*3/uL (0.1-1.0); NEUT # 4.9 10*3/uL (2.3-7.9); PLATELET COUNT AUTOMATED 169 10*3/uL (130-400); WHITE BLOOD COUNT 7.9 10*3/uL (4.8-10.8)
[2019-02-13 19:10] VITALS: BP 151/87
[2019-02-13] MEDS ORDERED: ZOFRAN4 MG PO (19:22)
== END 2019-02-13 19:45 | disposition home or self-care (01) ==
LOC: ED 16:57
PROVIDERS: Nurse Practitioner Family
DX: A08.4 Viral intestinal infection, unspecified (principal); R11.2 Nausea with vomiting, unspecified; E11.9 Type 2 diabetes mellitus without complications; I10 Essential (primary) hypertension; E78.5 Hyperlipidemia, unspecified; J45.909 Unspecified asthma, uncomplicated; E78.00 Pure hypercholesterolemia, unspecified; F17.210 Nicotine dependence, cigarettes, uncomplicated; Z88.0 Allergy status to penicillin; Z88.8 Allergy status to other drugs, medicaments and biological substances; Z79.899 Other long term (current) drug therapy; Z79.82 Long term (current) use of aspirin; Z79.4 Long term (current) use of insulin

== ENCOUNTER → 2019-02-13 | Outpatient (CLI) | payer OTHER ==
[~2019-02-13] MED LIST changes: +ZITHROMAX250 MG PO; +ZOFRAN4 MG PO
== END | disposition home or self-care (01) ==
LOC: LAB 09:54
DX: M47.817 Spondylosis without myelopathy or radiculopathy, lumbosacral region (principal); M51.36 Other intervertebral disc degeneration, lumbar region; J18.1 Lobar pneumonia, unspecified organism; E11.65 Type 2 diabetes mellitus with hyperglycemia; M54.41 Lumbago with sciatica, right side

== ENCOUNTER 2019-02-24 01:45 | Inpatient (IN) | payer OTHER ==
[~2019-02-24] VITALS: Ht 167.6 cm; Wt 69.6 kg
[2019-02-24] VITALS (8 sets, daily range): BP systolic 116–145; BP diastolic 69–82
[~2019-02-24 01:45] MED LIST changes: +ZOFRAN4 MG PO
--- NOTE | 2019-02-24 01:53 | NUR ---
PATIENT HAS ESCORATION UNDER THE LEFT BREAST AT THIS TIME. NOTHING OPEN NOTHING DRAINING.
[2019-02-24 02:11] LABS: BASO # 0.1 10*3/uL (0.0-0.1); BASO % 0.5 % (0.0-1.0); EOS # 0.2 10*3/uL (0.0-0.4); EOS % 2.1 % (1.0-4.0); HEMATOCRIT 39.5 % (37.0-47.0); HEMOGLOBIN 13.5 g/dl (12.0-16.0); LYMPH # 2.6 10*3/uL (1.3-4.4); MEAN CELL VOLUME 88.4 fl (81.0-99.0); MEAN CORPUSCULAR HGB 30.2 pg (27.0-31.0); MEAN CORPUSCULAR HGB CONC 34.2 g/dl (33.0-37.0); MEAN PLATELET VOLUME 10.2 fl (9.6-12.3); MONO # 0.6 10*3/uL (0.1-1.0); MONO % 5.9 % (3.0-9.0); NEUT # 5.9 10*3/uL (2.3-7.9); NEUT % 63.3 % (47.0-73.0); PLATELET COUNT AUTOMATED 189 10*3/uL (130-400); RED BLOOD COUNT 4.47 10*6/uL (4.10-5.10); RED CELL DISTRI WIDTH 12.6 % (0-14.5); WHITE BLOOD COUNT 9.3 10*3/uL (4.8-10.8)
[2019-02-24 02:24] LABS: ACT PARTIAL THROMBO TIME 24.7 SECONDS (20.0-32.1); INTERNATIONAL NORM RATIO 0.9 (2.0-3.5)
[2019-02-24 02:28] LABS: ALBUMIN 3.2 gm/dl (3.1-4.5); ALKALINE PHOSPHATASE 64 U/L (45-117); BUN 10 mg/dl (7-24); CHLORIDE 107 mmol/L (98-107); CREATININE 0.65 mg/dL (0.55-1.02); POTASSIUM 3.2 mmol/L (3.5-5.1); SGOT/AST 10 IU/L (3-35); SGPT/ALT 22 U/L (12-78); SODIUM 141 mmol/L (136-145); TOTAL PROTEIN 6.6 gm/dL (6.4-8.2)
[2019-02-24 02:29] LABS: TROPONIN I < 0.015 ng/ml (<0.045)
--- NOTE | 2019-02-24 04:33 | NUR ---
PATIENT HAS SCAB NOTED TO THE LEFT CHEEK, NO DRAINAGE, NOTHING OPEN, NO PHOTO TAKEN.
--- NOTE | 2019-02-24 05:32 | NUR ---
PATIENT IN BED AWAKE AND ALERT AT THIS TIME. CONT AUDIO VISUAL DESIGN ENGINEER IN PLACE. NO DISTRESS NOTED. RN WILL CONT TO MONITOR PT
--- NOTE | 2019-02-24 06:37 | NUR ---
CONSULT CALLED FOR DR CAMARENA ON THIS PATIENT
--- NOTE | 2019-02-24 07:10 | NUR ---
PT REPORT ACCEPTED. PT IS NOT PRESENT IN THIS DEPARTMENT, IS IN NUCLEAR MED DEPT.
--- NOTE | 2019-02-24 07:40 | NUR ---
INFORMED CONSENT OBTAINED FOR LEXISCAN NUCLEAR STRESS TEST WITH DR. MERA. RESTING EKG NSR WITH A RESTING HR OF 82 WITH BP OF 126/80. LUNGS CLEAR WITH SPO2 OF 96% ON ROOM AIR. PT COMPLETED A 1:00 LEXISCAN PROTOCOL RECEIVING LEXISCAN 0.4 MG IV OVER 10 SECONDS. HAD NO CHEST PAIN OR ANY EKG CHANGES. DID C/O OF FEELING "DIZZY" THAT WAS RELIEVED IN RECOVERY. HAD A PEAK HR OF 116 WITH BP OF 140/74. LAST RECOVERY HR OF 109 WIHT BP OF 132/72. AWAITING SCANNING IN STABLE CONDITION.
--- NOTE | 2019-02-24 08:13 | NUR ---
PT REMAINS IN NUCLEAR MED DEPT.
--- NOTE | 2019-02-24 09:14 | NUR ---
PT NOW RETURNS FROM N.M. DEPT. NO VOICED COMPLAINTS. ASKS FOR MEAL TRAY, ORDERED.
--- NOTE | 2019-02-24 13:19 | NUR ---
ATTEMPTED TO GICE LOVENOX DOSE LATE, UNABLE. REPROFILED MED BUT ITS NOT AVAILIBLE IN E.D. [facility]. PHARMACY UPDATED TIME. WILL PASS IN REPORT TO FLOOR NURSE. BED NOW ASSIGNED TO /, ADMISSION TRANSPORT NOW.
--- NOTE | 2019-02-24 13:25 | NUR ---
A 48, admitted to 5E, under the services of DESTINEY Hansen DO with a diagnosis of CHEST PAIN. Chief complaint is CHEST PAIN. Patient arrived via stretcher from ER. Monitor applied. Initial assessment completed. Vital signs taken and recorded. DESTINEY HANSEN DO notified of admission to the unit. Orders received. See assessment for past medical history, medications and allergies. Patient and/or family oriented to unit. [address] visitation policy reviewed. Clothing/patient valuable form completed. JONATHON GUZMAN
--- NOTE | 2019-02-24 14:29 | NUR ---
TORADOL IV GIVEN PER ORDERS. CALL LIGHT IN REACH. WILL MONITOR
--- NOTE | 2019-02-24 15:23 | NUR ---
Discharge instructions reviewed with patient/family. Patient receptive and verbalizes understanding. Follow-up care arranged. Written instructions given to patient/family. JONATHON GUZMAN
== END 2019-02-24 16:22 | disposition home or self-care (01) | DRG 198 ==
LOC: ED 01:45 → EDHOLD 03:50 → 5E 13:03
PROVIDERS: Emergency Medicine; ADMIT Family Medicine
PROC: 4A02XM4 Measurement of Cardiac Total Activity, External Approach (ICD-10-PCS; principal; 2019-02-24)
PROC: 3E073KZ Introduction of Other Diagnostic Substance into Coronary Artery, Percutaneous Approach (ICD-10-PCS; 2019-02-24)
DX: R07.89 Other chest pain (principal); F17.210 Nicotine dependence, cigarettes, uncomplicated; G89.29 Other chronic pain; F32.9 Major depressive disorder, single episode, unspecified; F41.1 Generalized anxiety disorder; E78.5 Hyperlipidemia, unspecified; I10 Essential (primary) hypertension; I20.8 Other forms of angina pectoris; E78.00 Pure hypercholesterolemia, unspecified; G47.00 Insomnia, unspecified; E87.6 Hypokalemia; E11.65 Type 2 diabetes mellitus with hyperglycemia; Z71.6 Tobacco abuse counseling; Z82.49 Family history of ischemic heart disease and other diseases of the circulatory system; Z83.3 Family history of diabetes mellitus; Z82.3 Family history of stroke; Z80.9 Family history of malignant neoplasm, unspecified; Z79.84 Long term (current) use of oral hypoglycemic drugs; Z88.5 Allergy status to narcotic agent; Z88.0 Allergy status to penicillin; Z90.49 Acquired absence of other specified parts of digestive tract; Z79.4 Long term (current) use of insulin; Z79.82 Long term (current) use of aspirin

== ENCOUNTER 2019-03-04 19:56 | Emergency (ER) | payer OTHER ==
[~2019-03-04] VITALS: Ht 160 cm; Wt 55.8 kg
[2019-03-04 19:59] VITALS: BP 132/81
[2019-03-04 20:35] LABS: BASO % 0.3 % (0.0-1.0); EOS # 0.2 10*3/uL (0.0-0.4); EOS % 1.3 % (1.0-4.0); HEMATOCRIT 43.4 % (37.0-47.0); HEMOGLOBIN 14.6 g/dl (12.0-16.0); LYMPH # 3.7 10*3/uL (1.3-4.4); LYMPH % 27.8 % (27.0-41.0); MEAN CELL VOLUME 88.9 fl (81.0-99.0); MEAN CORPUSCULAR HGB 29.9 pg (27.0-31.0); MEAN CORPUSCULAR HGB CONC 33.6 g/dl (33.0-37.0); MEAN PLATELET VOLUME 10.1 fl (9.6-12.3); MONO # 0.9 10*3/uL (0.1-1.0); MONO % 6.8 % (3.0-9.0); NEUT # 8.4 10*3/uL (2.3-7.9); NEUT % 63.4 % (47.0-73.0); PLATELET COUNT AUTOMATED 245 10*3/uL (130-400); RED BLOOD COUNT 4.88 10*6/uL (4.10-5.10); RED CELL DISTRI WIDTH 13.2 % (0-14.5); WHITE BLOOD COUNT 13.3 10*3/uL (4.8-10.8)
[2019-03-04 20:52] LABS: ALBUMIN 3.3 gm/dl (3.1-4.5); ALKALINE PHOSPHATASE 77 U/L (45-117); BUN 11 mg/dl (7-24); CHLORIDE 105 mmol/L (98-107); CREATININE 0.76 mg/dL (0.55-1.02); POTASSIUM 3.4 mmol/L (3.5-5.1); SGOT/AST 12 IU/L (3-35); SGPT/ALT 18 U/L (12-78); SODIUM 136 mmol/L (136-145); TOTAL PROTEIN 7.3 gm/dL (6.4-8.2)
[2019-03-04] MEDS ORDERED: SEPTDS PO (21:45)
[2019-03-04] MEDS ORDERED: CEPHALEXIN500 M1 PO (21:45)
== END 2019-03-04 22:05 | disposition left against medical advice (07) ==
LOC: ED 19:56
PROVIDERS: Emergency Medicine
DX: L08.9 Local infection of the skin and subcutaneous tissue, unspecified (principal); M79.642 Pain in left hand; I10 Essential (primary) hypertension; E78.5 Hyperlipidemia, unspecified; E11.9 Type 2 diabetes mellitus without complications; J45.909 Unspecified asthma, uncomplicated; E78.00 Pure hypercholesterolemia, unspecified; F17.210 Nicotine dependence, cigarettes, uncomplicated; Z88.0 Allergy status to penicillin; Z88.8 Allergy status to other drugs, medicaments and biological substances; Z79.899 Other long term (current) drug therapy; Z79.82 Long term (current) use of aspirin; Z79.4 Long term (current) use of insulin

== ENCOUNTER 2019-04-09 12:15 | Emergency (ER) | payer OTHER ==
[~2019-04-09] VITALS: Ht 160 cm; Wt 54.4 kg
[~2019-04-09 12:15] MED LIST changes: +CEPHALEXIN500 M1 PO; +SEPTDS PO
[2019-04-09 13:32] LABS: BASO # 0.1 10*3/uL (0.0-0.1); BASO % 0.5 % (0.0-1.0); EOS # 0.2 10*3/uL (0.0-0.4); HEMATOCRIT 43.8 % (37.0-47.0); LYMPH # 2.6 10*3/uL (1.3-4.4); LYMPH % 25.9 % (27.0-41.0); MEAN CELL VOLUME 89.2 fl (81.0-99.0); MEAN CORPUSCULAR HGB 30.5 pg (27.0-31.0); MEAN CORPUSCULAR HGB CONC 34.2 g/dl (33.0-37.0); MEAN PLATELET VOLUME 10.8 fl (9.6-12.3); MONO # 0.4 10*3/uL (0.1-1.0); MONO % 4.2 % (3.0-9.0); NEUT # 6.8 10*3/uL (2.3-7.9); NEUT % 67.1 % (47.0-73.0); PLATELET COUNT AUTOMATED 185 10*3/uL (130-400); RED BLOOD COUNT 4.91 10*6/uL (4.10-5.10); RED CELL DISTRI WIDTH 14.3 % (0-14.5); WHITE BLOOD COUNT 10.1 10*3/uL (4.8-10.8)
[2019-04-09 13:42] LABS: ACT PARTIAL THROMBO TIME 25.3 SECONDS (20.0-32.1); INTERNATIONAL NORM RATIO 0.9 (2.0-3.5)
[2019-04-09 13:53] LABS: ALBUMIN 3.6 gm/dl (3.1-4.5); ALKALINE PHOSPHATASE 77 U/L (45-117); BUN 11 mg/dl (7-24); CHLORIDE 103 mmol/L (98-107); CREATININE 0.74 mg/dL (0.55-1.02); LIPASE 111 U/L (73-393); POTASSIUM 3.9 mmol/L (3.5-5.1); SGOT/AST 12 IU/L (3-35); SGPT/ALT 25 U/L (12-78); SODIUM 136 mmol/L (136-145)
[2019-04-09 13:54] LABS: TROPONIN I < 0.015 ng/ml (<0.045)
[2019-04-09 15:10] VITALS: BP 136/80
== END 2019-04-09 15:30 | disposition left against medical advice (07) ==
LOC: ED 12:15
PROVIDERS: Emergency Medicine
DX: J20.9 Acute bronchitis, unspecified (principal); J45.909 Unspecified asthma, uncomplicated; E11.9 Type 2 diabetes mellitus without complications; I10 Essential (primary) hypertension; E78.2 Mixed hyperlipidemia; G89.29 Other chronic pain; Z88.0 Allergy status to penicillin; Z91.048 Other nonmedicinal substance allergy status; Z88.8 Allergy status to other drugs, medicaments and biological substances; Z79.2 Long term (current) use of antibiotics; Z79.899 Other long term (current) drug therapy; Z79.82 Long term (current) use of aspirin

== ENCOUNTER 2019-04-23 18:48 | Emergency (ER) | payer OTHER ==
[~2019-04-23] VITALS: Ht 160 cm; Wt 56.7 kg
[2019-04-23 18:53] VITALS: BP 146/77
[2019-04-23 19:46] LABS: BASO # 0.1 10*3/uL (0.0-0.1); BASO % 0.5 % (0.0-1.0); EOS # 0.2 10*3/uL (0.0-0.4); EOS % 1.4 % (1.0-4.0); HEMOGLOBIN 13.7 g/dl (12.0-16.0); LYMPH # 3.5 10*3/uL (1.3-4.4); LYMPH % 29.1 % (27.0-41.0); MEAN CELL VOLUME 91.7 fl (81.0-99.0); MEAN CORPUSCULAR HGB 31.4 pg (27.0-31.0); MEAN CORPUSCULAR HGB CONC 34.3 g/dl (33.0-37.0); MEAN PLATELET VOLUME 10.2 fl (9.6-12.3); MONO # 0.8 10*3/uL (0.1-1.0); MONO % 6.3 % (3.0-9.0); NEUT # 7.6 10*3/uL (2.3-7.9); NEUT % 62.2 % (47.0-73.0); PLATELET COUNT AUTOMATED 262 10*3/uL (130-400); RED BLOOD COUNT 4.36 10*6/uL (4.10-5.10); RED CELL DISTRI WIDTH 14.6 % (0-14.5); WHITE BLOOD COUNT 12.1 10*3/uL (4.8-10.8)
[2019-04-23 20:06] LABS: ALBUMIN 3.4 gm/dl (3.1-4.5); ALKALINE PHOSPHATASE 81 U/L (45-117); BUN 14 mg/dl (7-24); CHLORIDE 102 mmol/L (98-107); POTASSIUM 3.9 mmol/L (3.5-5.1); SGOT/AST 10 IU/L (3-35); SGPT/ALT 23 U/L (12-78); SODIUM 134 mmol/L (136-145); TOTAL PROTEIN 7.1 gm/dL (6.4-8.2)
[2019-04-23 22:52] LABS: BILIRUBIN NEGATIVE (NEGATIVE); BLOOD NEGATIVE (NEGATIVE); CLARITY CLEAR (CLEAR); COLOR YELLOW (YELLOW); GLUCOSE 3+ (NEGATIVE); KETONE NEGATIVE (NEGATIVE); LEUKO ESTERASE NEGATIVE (NEGATIVE); NITRITE NEGATIVE (NEGATIVE); PH 6.5 (5.0-9.0); SPECIFIC GRAVITY 1.015 (1.005-1.030); UROBILINOGEN 0.2 E.U./dl (0.2-1.0)
[2019-04-23 23:00] LABS: WBC 0-2 wbc/hpf (0-5); YEAST TRACE
== END 2019-04-23 23:57 | disposition home or self-care (01) ==
LOC: ED 18:48
PROVIDERS: Emergency Medicine
DX: S70.11XA Contusion of right thigh, initial encounter (principal); R10.31 Right lower quadrant pain; G89.29 Other chronic pain; I10 Essential (primary) hypertension; E78.1 Pure hyperglyceridemia; E11.9 Type 2 diabetes mellitus without complications; F17.210 Nicotine dependence, cigarettes, uncomplicated; Z88.0 Allergy status to penicillin; Z91.048 Other nonmedicinal substance allergy status; Z79.899 Other long term (current) drug therapy; Z79.82 Long term (current) use of aspirin; Z79.4 Long term (current) use of insulin; Z79.2 Long term (current) use of antibiotics; Z90.49 Acquired absence of other specified parts of digestive tract; X58.XXXA Exposure to other specified factors, initial encounter; Y93.89 Activity, other specified; Y92.89 Other specified places as the place of occurrence of the external cause; Y99.8 Other external cause status

== ENCOUNTER 2019-05-11 12:05 | Emergency (ER) | payer OTHER ==
[~2019-05-11] VITALS: Ht 160 cm; Wt 68.0 kg
[2019-05-11 12:19] VITALS: BP 122/78
[2019-05-11 13:47] LABS: BASO # 0.1 10*3/uL (0.0-0.1); BASO % 0.6 % (0.0-1.0); EOS # 0.1 10*3/uL (0.0-0.4); EOS % 1.3 % (1.0-4.0); HEMATOCRIT 42.7 % (37.0-47.0); HEMOGLOBIN 14.6 g/dl (12.0-16.0); LYMPH # 2.5 10*3/uL (1.3-4.4); LYMPH % 26.1 % (27.0-41.0); MEAN CELL VOLUME 93.4 fl (81.0-99.0); MEAN CORPUSCULAR HGB 31.9 pg (27.0-31.0); MEAN CORPUSCULAR HGB CONC 34.2 g/dl (33.0-37.0); MEAN PLATELET VOLUME 10.8 fl (9.6-12.3); MONO # 0.5 10*3/uL (0.1-1.0); MONO % 5.2 % (3.0-9.0); NEUT # 6.3 10*3/uL (2.3-7.9); NEUT % 66.4 % (47.0-73.0); PLATELET COUNT AUTOMATED 227 10*3/uL (130-400); RED BLOOD COUNT 4.57 10*6/uL (4.10-5.10); RED CELL DISTRI WIDTH 14.7 % (0-14.5); WHITE BLOOD COUNT 9.5 10*3/uL (4.8-10.8)
[2019-05-11 13:57] LABS: ACT PARTIAL THROMBO TIME 25.8 SECONDS (20.0-32.1); INTERNATIONAL NORM RATIO 0.9 (2.0-3.5)
[2019-05-11 14:02] LABS: ALBUMIN 3.3 gm/dl (3.1-4.5); ALKALINE PHOSPHATASE 84 U/L (45-117); BUN 9 mg/dl (7-24); CHLORIDE 105 mmol/L (98-107); CREATININE 0.85 mg/dL (0.55-1.02); LIPASE 401 U/L (73-393); POTASSIUM 4.2 mmol/L (3.5-5.1); SGOT/AST 15 IU/L (3-35); SGPT/ALT 22 U/L (12-78); SODIUM 137 mmol/L (136-145)
[2019-05-11 14:06] LABS: TROPONIN I < 0.015 ng/ml (<0.045)
[2019-05-11 16:54] LABS: BILIRUBIN NEGATIVE (NEGATIVE); CLARITY CLEAR (CLEAR); COLOR YELLOW (YELLOW); GLUCOSE 3+ (NEGATIVE); KETONE TRACE (NEGATIVE)
[2019-05-11 16:55] LABS: BLOOD NEGATIVE (NEGATIVE); LEUKO ESTERASE NEGATIVE (NEGATIVE); NITRITE NEGATIVE (NEGATIVE); UROBILINOGEN 0.2 E.U./dl (0.2-1.0)
[2019-05-11 17:01] LABS: BACTERIA 2+; EPITHELIAL CELLS 0-2; RBC 0-2 rbc/hpf (0-2); WBC 0-2 wbc/hpf (0-5); YEAST TRACE
== END 2019-05-11 16:47 | disposition home or self-care (01) ==
LOC: ED 12:05
PROVIDERS: Physician Assistant
DX: E11.65 Type 2 diabetes mellitus with hyperglycemia (principal); R20.0 Anesthesia of skin; M79.89 Other specified soft tissue disorders; I11.0 Hypertensive heart disease with heart failure; I50.9 Heart failure, unspecified; G89.29 Other chronic pain; J45.909 Unspecified asthma, uncomplicated; E78.2 Mixed hyperlipidemia; F17.200 Nicotine dependence, unspecified, uncomplicated; Z88.0 Allergy status to penicillin; Z91.048 Other nonmedicinal substance allergy status; Z88.8 Allergy status to other drugs, medicaments and biological substances; Z79.899 Other long term (current) drug therapy; Z79.82 Long term (current) use of aspirin; Z79.4 Long term (current) use of insulin; Z79.2 Long term (current) use of antibiotics; Z90.49 Acquired absence of other specified parts of digestive tract

== ENCOUNTER 2019-05-20 11:35 | Emergency (ER) | payer OTHER ==
[~2019-05-20] VITALS: Ht 160 cm; Wt 68.0 kg
[2019-05-20 11:42] VITALS: BP 145/90
[2019-05-20] MEDS ORDERED: IBUPROFEN600 MG PO (14:01)
== END 2019-05-20 13:58 | disposition home or self-care (01) ==
LOC: ED 11:35
DX: S20.211A Contusion of right front wall of thorax, initial encounter (principal); J45.909 Unspecified asthma, uncomplicated; E11.9 Type 2 diabetes mellitus without complications; E78.00 Pure hypercholesterolemia, unspecified; I10 Essential (primary) hypertension; F17.200 Nicotine dependence, unspecified, uncomplicated; Z88.0 Allergy status to penicillin; Z91.048 Other nonmedicinal substance allergy status; Z88.8 Allergy status to other drugs, medicaments and biological substances; Z79.899 Other long term (current) drug therapy; Z79.82 Long term (current) use of aspirin; Z79.4 Long term (current) use of insulin; Z79.2 Long term (current) use of antibiotics; Z90.49 Acquired absence of other specified parts of digestive tract; W01.0XXA Fall on same level from slipping, tripping and stumbling without subsequent striking against object, initial encounter; Y93.89 Activity, other specified; Y92.481 Parking lot as the place of occurrence of the external cause; Y99.8 Other external cause status

== ENCOUNTER 2019-09-17 17:45 | Emergency (ER) | payer OTHER ==
[~2019-09-17] VITALS: Ht 160 cm; Wt 61.2 kg
[2019-09-17 17:50] VITALS: BP 134/73
[2019-09-17] MEDS ORDERED: TYLENOL325 M1 PO (18:27)
[2019-09-17] MEDS ORDERED: NAPROXEN250 MG PO (18:27)
[2019-09-17] MEDS ORDERED: SEPTDS PO (18:27)
[2019-09-17 18:36] LABS: BACTERIA TRACE; BILIRUBIN NEGATIVE (NEGATIVE); BLOOD NEGATIVE (NEGATIVE); CLARITY CLEAR (CLEAR); COLOR YELLOW (YELLOW); EPITHELIAL CELLS 31-40; GLUCOSE 2+ (NEGATIVE); KETONE NEGATIVE (NEGATIVE); LEUKO ESTERASE NEGATIVE (NEGATIVE); NITRITE NEGATIVE (NEGATIVE); PH 6.5 (5.0-9.0); RBC 0-2 rbc/hpf (0-2); UROBILINOGEN 0.2 E.U./dl (0.2-1.0); WBC 0-2 wbc/hpf (0-5)
== END 2019-09-17 18:45 | disposition home or self-care (01) ==
LOC: ED 17:45
PROVIDERS: Emergency Medicine
DX: L03.213 Periorbital cellulitis (principal); B37.2 Candidiasis of skin and nail; M54.5 Low back pain

== ENCOUNTER 2019-11-20 14:58 | Emergency (ER) | payer OTHER ==
[~2019-11-20 14:58] MED LIST changes: +NAPROXEN250 MG PO; +TYLENOL325 M1 PO
[2019-11-20 15:06] VITALS: BP 142/73
[2019-11-20] MEDS ORDERED: KEFLEX500 M1 PO (15:55)
[2019-11-20] MEDS ORDERED: TOBREX OPHTH O3.5 GM T (15:55)
== END 2019-11-20 16:04 | disposition home or self-care (01) ==
LOC: ED 14:58
DX: H10.9 Unspecified conjunctivitis (principal); L03.213 Periorbital cellulitis; J45.909 Unspecified asthma, uncomplicated; E11.9 Type 2 diabetes mellitus without complications; E78.00 Pure hypercholesterolemia, unspecified; I10 Essential (primary) hypertension; F17.200 Nicotine dependence, unspecified, uncomplicated; Z88.0 Allergy status to penicillin; Z88.8 Allergy status to other drugs, medicaments and biological substances; Z79.899 Other long term (current) drug therapy; Z79.82 Long term (current) use of aspirin; Z79.4 Long term (current) use of insulin

== ENCOUNTER → 2020-04-22 | Outpatient (CLI) | payer OTHER ==
[~2020-04-22] MED LIST changes: +KEFLEX500 M1 PO; +TOBREX OPHTH O3.5 GM T
== END | disposition home or self-care (01) ==
LOC: US 10:00
PROVIDERS: ATTEND Nurse Practitioner Primary Care
DX: E04.1 Nontoxic single thyroid nodule (principal); N28.89 Other specified disorders of kidney and ureter

== ENCOUNTER 2020-11-19 10:29 | Emergency (ER) | payer OTHER ==
[~2020-11-19] VITALS: Ht 160 cm; Wt 68.0 kg
[2020-11-19 10:34] VITALS: BP 160/83
[2020-11-19 10:57] LABS: BASO # 0.1 10*3/uL (0.0-0.1); BASO % 0.5 % (0.0-1.0); EOS # 0.1 10*3/uL (0.0-0.4); EOS % 1.2 % (1.0-4.0); HEMATOCRIT 46.2 % (37.0-47.0); LYMPH # 2.6 10*3/uL (1.3-4.4); LYMPH % 26.3 % (27.0-41.0); MEAN CELL VOLUME 91.3 fl (81.0-99.0); MEAN CORPUSCULAR HGB CONC 35.1 g/dl (33.0-37.0); MEAN PLATELET VOLUME 11.2 fl (9.6-12.3); MONO # 0.6 10*3/uL (0.1-1.0); MONO % 5.9 % (3.0-9.0); NEUT # 6.4 10*3/uL (2.3-7.9); NEUT % 65.6 % (47.0-73.0); PLATELET COUNT AUTOMATED 200 10*3/uL (130-400); RED BLOOD COUNT 5.06 10*6/uL (4.10-5.10); RED CELL DISTRI WIDTH 12.2 % (0-14.5); WHITE BLOOD COUNT 9.7 10*3/uL (4.8-10.8)
[2020-11-19 11:10] LABS: ALBUMIN 3.6 gm/dl (3.1-4.5); ALKALINE PHOSPHATASE 79 U/L (45-117); BUN 11 mg/dl (7-24); CHLORIDE 105 mmol/L (98-107); CREATININE 0.65 mg/dL (0.55-1.02); SGOT/AST 21 IU/L (3-35); SGPT/ALT 40 U/L (12-78); SODIUM 138 mmol/L (136-145); TOTAL PROTEIN 7.3 gm/dL (6.4-8.2)
== END 2020-11-19 12:01 | disposition home or self-care (01) ==
LOC: ED 10:29
PROVIDERS: Student in an Organized Health Care Education/Training Program
DX: E87.6 Hypokalemia (principal); R19.7 Diarrhea, unspecified; R53.1 Weakness; R11.0 Nausea; F17.200 Nicotine dependence, unspecified, uncomplicated; Z88.0 Allergy status to penicillin; Z91.048 Other nonmedicinal substance allergy status; Z88.8 Allergy status to other drugs, medicaments and biological substances; Z79.899 Other long term (current) drug therapy; Z79.2 Long term (current) use of antibiotics; Z79.82 Long term (current) use of aspirin; Z79.4 Long term (current) use of insulin; Z88.1 Allergy status to other antibiotic agents; Z98.890 Other specified postprocedural states; Z90.49 Acquired absence of other specified parts of digestive tract; Z87.442 Personal history of urinary calculi

== ENCOUNTER 2021-01-20 10:35 | Emergency (ER) | payer MEDICARE, MEDICAID ==
[~2021-01-20] VITALS: Wt 90.7 kg
[2021-01-20 10:49] VITALS: BP 154/72
== END 2021-01-20 14:11 | disposition left against medical advice (07) ==
LOC: ED 10:35
DX: M25.572 Pain in left ankle and joints of left foot (principal); Z53.21 Procedure and treatment not carried out due to patient leaving prior to being seen by health care provider; W19.XXXA Unspecified fall, initial encounter; Y93.89 Activity, other specified; Y92.89 Other specified places as the place of occurrence of the external cause; Y99.8 Other external cause status

== ENCOUNTER → 2023-02-27 | Outpatient (CLI) | payer MEDICARE, MEDICAID ==
[~2023-02-27] MED LIST changes: +GOOD SENSE ASPI81 M1 PO; +HYDROCODONE-AC1 EAC1 PO
== END | disposition home or self-care (01) ==
LOC: ORTHO 01:21
PROVIDERS: ATTEND Orthopaedic Surgery
DX: S72.032D Displaced midcervical fracture of left femur, subsequent encounter for closed fracture with routine healing (principal); Z89.622 Acquired absence of left hip joint; X58.XXXD Exposure to other specified factors, subsequent encounter

== ENCOUNTER → 2023-04-05 | Outpatient (CLI) | payer OTHER ==
[~2023-04-05] MED LIST changes: +VANCO 1.251.25 GM/25 IV
== END | disposition home or self-care (01) ==
LOC: ORTHO 00:58
PROVIDERS: ATTEND Orthopaedic Surgery
DX: S72.032D Displaced midcervical fracture of left femur, subsequent encounter for closed fracture with routine healing (principal); Z96.642 Presence of left artificial hip joint; X58.XXXD Exposure to other specified factors, subsequent encounter

== ENCOUNTER 2023-06-03 13:25 | Emergency (ER) | payer OTHER ==
[~2023-06-03] VITALS: Wt 61.3 kg
[~2023-06-03 13:25] MED LIST changes: +DALVANCE500 MG IV; +Humalog SQ; +VANCO 1 GR1 GM/250 M IV
[2023-06-03 13:29] VITALS: BP 123/71
[2023-06-03 15:08] LABS: BASO # 0.1 10*3/uL (0.0-0.1); BASO % 0.5 % (0.0-1.0); EOS # 0.2 10*3/uL (0.0-0.4); EOS % 1.3 % (1.0-4.0); HEMATOCRIT 47.7 % (37.0-47.0); LYMPH % 17.2 % (27.0-41.0); MEAN CELL VOLUME 91.4 fl (81.0-99.0); MEAN CORPUSCULAR HGB 29.1 pg (27.0-31.0); MEAN CORPUSCULAR HGB CONC 31.9 g/dl (33.0-37.0); MEAN PLATELET VOLUME 10.6 fl (9.6-12.3); MONO # 0.7 10*3/uL (0.1-1.0); MONO % 5.6 % (3.0-9.0); NEUT # 8.9 10*3/uL (2.3-7.9); NEUT % 75.1 % (47.0-73.0); PLATELET COUNT AUTOMATED 202 10*3/uL (130-400); RED BLOOD COUNT 5.22 10*6/uL (4.10-5.10); RED CELL DISTRI WIDTH 12.9 % (0-14.5); WHITE BLOOD COUNT 11.9 10*3/uL (4.8-10.8)
[2023-06-03 15:40] LABS: BUN 9 mg/dl (9-23); CHLORIDE 106 mmol/L (98-107); POTASSIUM 3.8 mmol/L (3.4-5.1)
== END 2023-06-03 20:23 ==
LOC: ED 13:25
PROVIDERS: Internal Medicine
DX: M79.605 Pain in left leg (principal); Z04.89 Encounter for examination and observation for other specified reasons; J45.909 Unspecified asthma, uncomplicated; F41.9 Anxiety disorder, unspecified; F32.A Depression, unspecified; E11.9 Type 2 diabetes mellitus without complications; E78.00 Pure hypercholesterolemia, unspecified; I10 Essential (primary) hypertension; Z88.0 Allergy status to penicillin; Z88.8 Allergy status to other drugs, medicaments and biological substances; Z90.49 Acquired absence of other specified parts of digestive tract; Z98.890 Other specified postprocedural states; F17.200 Nicotine dependence, unspecified, uncomplicated; W05.0XXA Fall from non-moving wheelchair, initial encounter

== ENCOUNTER 2023-06-26 20:51 | Emergency (ER) | payer OTHER ==
[~2023-06-26] VITALS: Ht 157.4 cm; Wt 60.6 kg
[~2023-06-26 20:51] MED LIST changes: +ASPIRIN ADULT L81 M2 PO; +BISACODYL10 MG R; +CIPRO500 MG PO; +CLOPIDOGREL75 MG PO; +CYMBALTA20 M1 PO; +LANTUS SOL100 UNIT/1 SC; +MILK OF MA2400 MG/11 PO; +TUBERSOL1 M1 INTRADERM; +VITAMIN D250 MCG PO; +VITAMIN D350 MC2 PO
[2023-06-26 20:52] VITALS: BP 104/69
[2023-06-26 21:33] LABS: BASO # 0.1 10*3/uL (0.0-0.1); BASO % 0.6 % (0.0-1.0); EOS # 0.2 10*3/uL (0.0-0.4); EOS % 2.3 % (1.0-4.0); HEMATOCRIT 43.8 % (37.0-47.0); LYMPH % 29.3 % (27.0-41.0); MEAN CELL VOLUME 87.3 fl (81.0-99.0); MEAN CORPUSCULAR HGB 29.5 pg (27.0-31.0); MEAN CORPUSCULAR HGB CONC 33.8 g/dl (33.0-37.0); MEAN PLATELET VOLUME 11.1 fl (9.6-12.3); MONO # 0.6 10*3/uL (0.1-1.0); MONO % 5.7 % (3.0-9.0); NEUT # 6.3 10*3/uL (2.3-7.9); NEUT % 61.9 % (47.0-73.0); PLATELET COUNT AUTOMATED 229 10*3/uL (130-400); RED BLOOD COUNT 5.02 10*6/uL (4.10-5.10); WHITE BLOOD COUNT 10.2 10*3/uL (4.8-10.8)
[2023-06-26 21:40] LABS: ACT PARTIAL THROMBO TIME 27.3 SECONDS (20.0-32.1)
[2023-06-26 21:49] LABS: ALKALINE PHOSPHATASE 65 U/L (46-116); BUN 13 mg/dl (9-23); CHLORIDE 101 mmol/L (98-107); CPK 17 U/L (34-171); LIPASE 18 U/L (12-53); SGPT/ALT 10 U/L (5-49); TOTAL PROTEIN 6.5 gm/dL (6.0-8.0)
[2023-06-26] MEDS ORDERED: Metoclopramide Hydrochloride 10 MG/2 ML AMP IV ONE (21:55)
[2023-06-26 22:07] LABS: BILIRUBIN Negative (Negative); BLOOD Negative (Negative); CLARITY Clear (Clear); COLOR Yellow (Yellow); GLUCOSE Negative (Negative); KETONE Negative (Negative); LEUKO ESTERASE 2+ (Negative); NITRITE Negative (Negative); UROBILINOGEN 0.2 E.U./dl (0.0-1.0)
[2023-06-26 22:14] LABS: URINE AMPHETAMINES Negative (1000ng/ml); URINE BARBITURATES Negative (200ng/ml); URINE BENZODIAZEPINES Negative (200ng/ml); URINE CANNABINOIDS (THC) Negative (50ng/ml); URINE COCAINE Negative (300ng/ml); URINE METHADONE Negative (300ng/ml); URINE OPIATES Negative (300ng/ml); URINE PHENCYCLIDINE Negative (25ng/ml)
[2023-06-26 22:18] LABS: BACTERIA 1+; EPITHELIAL CELLS 16-20; MUCOUS 1+; WBC 31-40 wbc/hpf (0-5)
[2023-06-26] MEDS ORDERED: Ceftriaxone Sodium 1 GM/10 ML SYR IV ONE (23:40)
[2023-06-26] MEDS ORDERED: SODIUM CHLORIDE 0.9% 1,000 ML IV ONE (23:40)
== END 2023-06-27 01:30 ==
LOC: ED 20:51
PROVIDERS: Nurse Practitioner Family
DX: S00.93XA Contusion of unspecified part of head, initial encounter (principal); R11.12 Projectile vomiting; J45.909 Unspecified asthma, uncomplicated; F41.9 Anxiety disorder, unspecified; E78.00 Pure hypercholesterolemia, unspecified; I10 Essential (primary) hypertension; R10.9 Unspecified abdominal pain; E78.5 Hyperlipidemia, unspecified; F32.A Depression, unspecified; E11.65 Type 2 diabetes mellitus with hyperglycemia; Z88.0 Allergy status to penicillin; Z88.8 Allergy status to other drugs, medicaments and biological substances; Z90.49 Acquired absence of other specified parts of digestive tract; Z98.890 Other specified postprocedural states; Z79.899 Other long term (current) drug therapy; F17.200 Nicotine dependence, unspecified, uncomplicated; W19.XXXA Unspecified fall, initial encounter; Y93.89 Activity, other specified; Y92.129 Unspecified place in nursing home as the place of occurrence of the external cause; Y99.8 Other external cause status

== ENCOUNTER 2023-06-27 15:10 | Inpatient (IN) | payer MEDICARE, OTHER ==
[~2023-06-27] VITALS: Ht 154.9 cm; Wt 58.1 kg
[2023-06-27 15:14] VITALS: BP 116/71
[2023-06-27 15:36] LABS: BASO # 0.1 10*3/uL (0.0-0.1); BASO % 0.6 % (0.0-1.0); EOS # 0.3 10*3/uL (0.0-0.4); EOS % 3.3 % (1.0-4.0); LYMPH # 2.9 10*3/uL (1.3-4.4); LYMPH % 36.9 % (27.0-41.0); MEAN CELL VOLUME 86.7 fl (81.0-99.0); MEAN CORPUSCULAR HGB 29.2 pg (27.0-31.0); MEAN CORPUSCULAR HGB CONC 33.7 g/dl (33.0-37.0); MEAN PLATELET VOLUME 11.5 fl (9.6-12.3); MONO # 0.5 10*3/uL (0.1-1.0); MONO % 6.6 % (3.0-9.0); NEUT # 4.1 10*3/uL (2.3-7.9); NEUT % 52.3 % (47.0-73.0); PLATELET COUNT AUTOMATED 219 10*3/uL (130-400); RED BLOOD COUNT 4.96 10*6/uL (4.10-5.10); RED CELL DISTRI WIDTH 13.2 % (0-14.5); WHITE BLOOD COUNT 7.8 10*3/uL (4.8-10.8)
[2023-06-27 15:47] LABS: ACT PARTIAL THROMBO TIME 27.1 SECONDS (20.0-32.1)
[2023-06-27 16:02] LABS: ALKALINE PHOSPHATASE 62 U/L (46-116); BUN 14 mg/dl (9-23); CHLORIDE 103 mmol/L (98-107); LIPASE 21 U/L (12-53); POTASSIUM 3.8 mmol/L (3.4-5.1); SGPT/ALT 12 U/L (5-49); TOTAL PROTEIN 6.6 gm/dL (6.0-8.0)
[2023-06-27] MEDS ORDERED: Vancomycin Hydrochloride 250 ML IV ONE (16:05)
[2023-06-27] MEDS ORDERED: Meropenem 1 GM in SODIUM CHLORIDE 0.9% 100 ML IV ONE (16:05)
[2023-06-27] MEDS ORDERED: Magnesium Hydroxide 30 ML UDC PO PRN (16:25)
[2023-06-27] MEDS ORDERED: ACETAMINOPHEN 325 MG TAB PO PRN (16:25)
[2023-06-27] MEDS ORDERED: TEMAZEPAM 15 MG CAP PO PRN (16:25)
[2023-06-27] MEDS ORDERED: Acetaminophen/Hydrocodone 5 MG/325 MG TABLET PO PRN (16:25)
[2023-06-27] MEDS ORDERED: Ondansetron Hydrochloride 4 MG/2 ML VIAL IV PRN (16:25)
[2023-06-27] MEDS ORDERED: MORPHINE Sulfate 2 MG/ML SYR IV PRN (16:25)
[2023-06-27] MEDS ORDERED: BISACODYL 5 MG TAB PO PRN (16:25)
[2023-06-27 17:16] LABS: BILIRUBIN Negative (Negative); BLOOD Negative (Negative); CLARITY Clear (Clear); COLOR Yellow (Yellow); GLUCOSE Negative (Negative); KETONE Negative (Negative); LEUKO ESTERASE Negative (Negative); NITRITE Negative (Negative); PH 6.5 (4.5-8.0); SPECIFIC GRAVITY 1.015 (1.001-1.030); UROBILINOGEN 0.2 E.U./dl (0.0-1.0)
[2023-06-27 17:28] LABS: BACTERIA 2+; CALCIUM OXALATE CRYSTALS 1+; EPITHELIAL CELLS 0-2
[2023-06-27 17:48] VITALS: BP 109/66
[2023-06-27 19:20] VITALS: BP 114/62
[2023-06-27 23:30] VITALS: BP 105/61
[2023-06-28] MEDS ORDERED: Meropenem 1 GM in SODIUM CHLORIDE 0.9% 100 ML IV SCH
[2023-06-28] MEDS ORDERED: DEXTROSE 10 % IN WATER 250 ML IV PRN (02:45)
[2023-06-28 03:55] VITALS: BP 111/66
[2023-06-28] MEDS ORDERED: VANCOMYCIN/WATER FOR INJ (PEG) 150 ML IV SCH (06:00)
[2023-06-28 07:14] LABS: BASO # 0.1 10*3/uL (0.0-0.1); BASO % 1.1 % (0.0-1.0); EOS # 0.3 10*3/uL (0.0-0.4); HEMATOCRIT 42.5 % (37.0-47.0); LYMPH # 2.5 10*3/uL (1.3-4.4); LYMPH % 34.7 % (27.0-41.0); MEAN CELL VOLUME 88.7 fl (81.0-99.0); MEAN CORPUSCULAR HGB 29.6 pg (27.0-31.0); MEAN CORPUSCULAR HGB CONC 33.4 g/dl (33.0-37.0); MEAN PLATELET VOLUME 11.8 fl (9.6-12.3); MONO # 0.5 10*3/uL (0.1-1.0); MONO % 7.5 % (3.0-9.0); NEUT # 3.7 10*3/uL (2.3-7.9); NEUT % 52.4 % (47.0-73.0); PLATELET COUNT AUTOMATED 223 10*3/uL (130-400); RED BLOOD COUNT 4.79 10*6/uL (4.10-5.10); RED CELL DISTRI WIDTH 13.1 % (0-14.5); WHITE BLOOD COUNT 7.1 10*3/uL (4.8-10.8)
[2023-06-28] MEDS ORDERED: INSULIN LISPRO 1 UNIT/0.01 ML SQ SCH (07:30)
[2023-06-28 07:36] LABS: ALKALINE PHOSPHATASE 56 U/L (46-116); BUN 8 mg/dl (9-23); CHLORIDE 107 mmol/L (98-107); SGPT/ALT 12 U/L (5-49); TOTAL PROTEIN 6.3 gm/dL (6.0-8.0)
[2023-06-28] MEDS ORDERED: Insulin Glargine, Recombinan 1 UNIT/0.01 ML SC SCH (10:00)
[2023-06-28] MEDS ORDERED: Clopidogrel Hydrogen Sulfate 75 MG TAB PO SCH (10:00)
[2023-06-28] MEDS ORDERED: ASPIRIN ENTERIC COATED 81 MG TAB PO SCH (10:00)
[2023-06-28] MEDS ORDERED: Duloxetine Hydrochloride 20 MG CAP PO SCH (10:00)
[2023-06-28] MEDS ORDERED: Enoxaparin Sodium 40 MG/0.4 ML SYR SC SCH (10:00)
[2023-06-28 16:00] VITALS: BP 114/68
[2023-06-28] MEDS ORDERED: FOAM BANDAGE 1 EACH BANDAGE T ONE (19:37)
[2023-06-28 20:00] VITALS: BP 110/53
[2023-06-28] MEDS ORDERED: LEPTOSPERMUM HONEY 0.5 OZ TUBE T ONE (20:46)
[2023-06-28] MEDS ORDERED: CHAIR CUSHION DEVICE ONE (20:46)
[2023-06-29] VITALS: BP 111/69
[2023-06-29 08:00] VITALS: BP 97/56
[2023-06-29 12:00] VITALS: BP 107/70
[2023-06-29] MEDS ORDERED: VANCOMYCIN/WATER FOR INJ (PEG) 150 ML IV SCH (14:00)
[2023-06-29 16:00] VITALS: BP 124/75
[2023-06-29 20:00] VITALS: BP 111/67
[2023-06-30] VITALS: BP 122/69
[2023-06-30 08:00] VITALS: BP 109/58
[2023-06-30 12:00] VITALS: BP 103/66
== END 2023-06-30 14:25 | DRG 70 ==
LOC: ED 15:10 → EDHOLD 16:12 → 5E 16:12 → EDHOLD 06-28 12:08 → 5E 06-28 13:04
PROVIDERS: Emergency Medicine; Internal Medicine; ADMIT Internal Medicine; ATTEND Internal Medicine
DX: G93.41 Metabolic encephalopathy (principal); L89.154 Pressure ulcer of sacral region, stage 4; R78.81 Bacteremia; N30.00 Acute cystitis without hematuria; E78.5 Hyperlipidemia, unspecified; G89.29 Other chronic pain; M54.9 Dorsalgia, unspecified; F41.1 Generalized anxiety disorder; E78.2 Mixed hyperlipidemia; E11.51 Type 2 diabetes mellitus with diabetic peripheral angiopathy without gangrene; E11.65 Type 2 diabetes mellitus with hyperglycemia; Z79.4 Long term (current) use of insulin; Z88.0 Allergy status to penicillin; Z88.8 Allergy status to other drugs, medicaments and biological substances; Z90.49 Acquired absence of other specified parts of digestive tract; Z98.891 History of uterine scar from previous surgery; Z82.3 Family history of stroke; Z80.8 Family history of malignant neoplasm of other organs or systems; Z86.73 Personal history of transient ischemic attack (TIA), and cerebral infarction without residual deficits

== ENCOUNTER 2023-07-25 11:00 | Emergency (ER) | payer MEDICARE, OTHER ==
[~2023-07-25] VITALS: Ht 167.6 cm; Wt 54.6 kg
[2023-07-25 11:03] VITALS: BP 111/59
[2023-07-25] MEDS ORDERED: FLEET ENEMA EX230 M1 R (11:26)
[2023-07-25] MEDS ORDERED: TYLENOL325 M3 PO (11:28)
== END 2023-07-25 13:30 | disposition home or self-care (01) ==
LOC: ED 11:00
DX: S09.8XXA Other specified injuries of head, initial encounter (principal); E11.9 Type 2 diabetes mellitus without complications; I10 Essential (primary) hypertension; E78.5 Hyperlipidemia, unspecified; F41.9 Anxiety disorder, unspecified; F32.A Depression, unspecified; E78.00 Pure hypercholesterolemia, unspecified; J45.909 Unspecified asthma, uncomplicated; Z88.0 Allergy status to penicillin; Z88.8 Allergy status to other drugs, medicaments and biological substances; Z98.890 Other specified postprocedural states; Z90.49 Acquired absence of other specified parts of digestive tract; F17.200 Nicotine dependence, unspecified, uncomplicated; W05.0XXA Fall from non-moving wheelchair, initial encounter; Y93.89 Activity, other specified; Y92.89 Other specified places as the place of occurrence of the external cause; Y99.8 Other external cause status

== ENCOUNTER → 2024-06-05 | Outpatient (CLI) | payer MEDICARE ==
[~2024-06-05] MED LIST changes: +EXELON1 EAC1 T; +EXELON1 EACH T; +FLEET ENEMA EX230 M1 R; +LANTUS100 UNIT/1 SQ; +LIPITOR40 MG PO; +TYLENOL325 M3 PO
== END | disposition home or self-care (01) ==
LOC: CT 13:26
PROVIDERS: ATTEND Internal Medicine
DX: J84.10 Pulmonary fibrosis, unspecified (principal); J98.4 Other disorders of lung; R91.1 Solitary pulmonary nodule; I25.10 Atherosclerotic heart disease of native coronary artery without angina pectoris; K76.0 Fatty (change of) liver, not elsewhere classified